=== PATIENT | female | born 1945 | race African-American/Black ===

== ENCOUNTER → 2016-11-02 | Outpatient (CLI) | payer MEDICARE, OTHER ==
--- NOTE | 2016-11-02 09:18 | US ---
EXAMINATION TYPE: US kidneys/renal and bladder DATE OF EXAM: 11/02/2016 COMPARISON: CT lumbar spine March 17, 2016. Bilateral renal ultrasound May 14, 2015. CLINICAL HISTORY: Chronic Kidney Disease Stage 3 N18.3. EXAM MEASUREMENTS: Right Kidney: 9.0 x 4.1 x 4.0 cm Left Kidney: 9.3 x 4.3 x 3.7 cm Post Void Residual Volume: Bladder insufficiently full to evaluate. Right Kidney: Upper pole probable simple cyst = 0.6 x 0.5 x 0.6 cm Left Kidney: wnl Bladder: Bladder insufficiently full to fully evaluate Bilateral Jets seen: yes Normal Post Void Residual: Bladder insufficiently full to evaluate There is no evidence for hydronephrosis at this point in time. No nephrolithiasis is seen. No solid or cystic masses are identified on images saved. The urinary bladder is poorly distended. Bilatera l ureteral jets are seen. exam somewhat limited d/t overlying bowel gas and rib shadowing. IMPRESSION: No hydronephrosis is evident bilaterally.
== END | disposition home or self-care (01) ==
LOC: RADUSWWP 08:22
PROVIDERS: ATTEND Internal Medicine Nephrology
DX: N18.3 Chronic kidney disease, stage 3 (moderate) (principal)
CPT/HCPCS: 76770

== ENCOUNTER → 2017-01-30 | Outpatient (CLI) | payer MEDICARE, OTHER ==
--- NOTE | 2017-02-01 09:37 | MM ---
Reason for exam: screening (asymptomatic). Last mammogram was performed 1 year ago. History: Patient is postmenopausal. Family history of breast cancer in sister at age 50. Benign excisional biopsy of the right breast, January 19, 1998. Physical Findings: A clinical breast exam by your physician is recommended on an annual basis and results should be correlated with mammographic findings. MG 3D Screening Mammo W/Cad Bilateral CC and MLO view(s) were taken. Prior study comparison: January 29, 2016, right breast MG work up mamm w CAD RT. January 26, 2016, bilateral MG screening mammo w CAD. April 30, 2014, bilateral MG screening mammo w CAD. There are scattered fibroglandular densities. No suspicious abnormality. Pacemaker overlies and obscures left axilla. No significant new findings when compared with previous films. ASSESSMENT: Negative, BI-RAD 1 RECOMMENDATION: Routine screening mammogram of both breasts in 1 year.
== END | disposition home or self-care (01) ==
LOC: RADMAMWWP 12:43
PROVIDERS: ATTEND Internal Medicine
DX: Z12.31 Encounter for screening mammogram for malignant neoplasm of breast (principal)
CPT/HCPCS: 77063; G0202

== ENCOUNTER 2019-10-30 22:37 | Inpatient (IN) | payer MEDICARE, OTHER ==
[~2019-10-30 22:37] MED LIST: EPINEPHrine 10 ML SYRINGE (0.1 MG/ML) ONE; SODIUM BICARB 8.4% 50 ML SYR (1 MEQ/ML) ONE
[2019-10-30] MEDS ORDERED: LORazepam 2 MG/ML INJ IV PRN ×2 (22:51)
[2019-10-30 22:53] LABS: Glucose,Whole Blood 252 mg/dL (75-99)
--- NOTE | 2019-10-30 23:00 | ED ---
General Adult HPI - General Source: EMS, RN notes reviewed Mode of arrival: EMS Limitations: altered mental status, physical limitation <José Luis Ponce - Last Filed: 10/30/19 23:56> <Papo Acosta - Last Filed: 10/31/19 05:01> - General Chief complaint: Cardiac Arrest/CPR Stated complaint: CPR Time Seen by Provider: 10/30/19 22:37 - History of Present Illness Initial comments: Patient is unresponsive 74-year-old female presenting to the emergency department with CPR in progress. Patient reportedly was complaining of shortness of breath. Upon arrival by EMS patient became unresponsive and asystole. CPR was done for approximately 15 minutes prior to arrival. Patient did have an intraosseous line on the right leg as well as was intubated. Patient was given 2 epinephrine. Patient is unresponsive and still undergoing CPR and arrival and unable to provide further history. (José Luis Ponce) - Related Data Home Medications Medication Instructions Recorded Confirmed Calcitriol 0.25 mcg PO FR 03/12/14 07/21/15 HYDROcodone/APAP 5-325MG [[place] 1 tab PO BID PRN 03/12/14 07/21/15 5-325] Levothyroxine Sodium [Synthroid] 75 mcg PO DAILY 03/12/14 07/21/15 Lovastatin [Mevacor] 20 mg PO HS 03/12/14 07/21/15 Sodium Bicarbonate Tab 650 mg PO BID 03/12/14 07/21/15 buPROPion XL [Wellbutrin XL] 300 mg PO DAILY 03/12/14 07/21/15 traMADol HCL [Ultram] 50 mg PO Q6HR PRN 03/12/14 07/21/15 Magnesium Oxide [Mag-Ox] 400 mg PO DAILY 09/22/14 07/21/15 Ergocalciferol [Vitamin D2 50,000 unit PO FR 05/13/15 07/21/15 (DRISDOL)] Escitalopram [Lexapro] 10 mg PO DAILY 05/13/15 07/21/15 Furosemide [Lasix] 40 mg PO DAILY 05/13/15 07/21/15 traZODone HCL [Desyrel] 100 mg PO HS 05/13/15 07/21/15 Allopurinol [Zyloprim] 300 mg PO DAILY 02/15/16 02/16/16 Carvedilol [Coreg] 6.25 mg PO BID 07/20/15 07/21/15 Insulin Aspart [NovoLOG Flexpen] See Protocol SQ TID-W/MEALS PRN 07/20/15 07/21/15 Insulin Glargine [Lantus] 8 units SQ HS 07/20/15 07/21/15 hydrALAZINE HCL [Apresoline] 25 mg PO BID 07/20/15 07/21/15 Glucerna Shake 1 can PO TID-W/MEALS 07/21/15 07/21/15 Previous Rx's Medication Instructions Recorded Aspirin 81 mg PO DAILY #90 chew 03/18/14 Allergies Allergy/AdvReac Type Severity Reaction Status Date / Time No Known Allergies Allergy Verified 10/30/19 22:49 Review of Systems ROS Other: All systems not noted in ROS Statement are negative. Limitations: ROS unobtainable due to patients medical condition Respiratory: Reports: dyspnea <José Luis Ponce - Last Filed: 10/30/19 23:56> ROS Other: All systems not noted in ROS Statement are negative. <Papo Acosta - Last Filed: 10/31/19 05:01> ROS Statement: Those systems with pertinent positive or pertinent negative responses have been documented in the HPI. Past Medical History Past Medical History: Diabetes Mellitus, Mitral Valve Prolapse (MVP), Renal Disease, Thyroid Disorder Additional Past Medical History / Comment(s): STATES SOME MEMORY LOSS, HX GOUT History of Any Multi-Drug Resistant Organisms: None Reported Past Surgical History: Cholecystectomy, Heart Catheterization Additional Past Surgical History / Comment(s): DEVEN CATARACT SX, DEVEN EYELIDS SX, Past Anesthesia/Blood Transfusion Reactions: No Reported Reaction Past Psychological History: Depression Smoking Status: Former smoker Past Alcohol Use History: Occasional Past Drug Use History: None Reported - Past Family History Father Family Medical History: Unable to Obtain Additional Family Medical History / Comment(s): PT ESTRANGED FROM FATHER. Mother Family Medical History: Cancer Additional Family Medical History / Comment(s): MOTHER OF CANCER AT AGE 54- UNSURE WHAT TYPE OF CA BUT THINKS IT WAS IN HER ABDOMEN.. <José Luis Ponce - Last Filed: 10/30/19 23:56> General Exam Limitations: no limitations General appearance: obtunded Head exam: Present: normocephalic Eye exam: Present: other (Pupils slightly dilated and sluggish) ENT exam: Present: normal oropharynx Neck exam: Present: normal inspection Respiratory exam: Present: other (No spontaneous breath sounds. Decreased breath sounds with bagging insufflation) Cardiovascular Exam: Present: other (No spontaneous heart sounds or pulse) GI/Abdominal exam: Present: soft. Absent: tenderness Extremities exam: Present: normal inspection Neurological exam: Present: other (Unresponsive. GCS 3) Psychiatric exam: Present: other (Unresponsive) Skin exam: Present: normal color <José Luis Ponce - Last Filed: 10/30/19 23:56> Course <José Luis Ponce - Last Filed: 10/30/19 23:56> Vital Signs 10/30/19 10/30/19 10/30/19 22:52 22:57 23:19 Temperature Pulse Rate 133 H 127 H Respiratory Rate Blood Pressure 126/74 100/71 79/49 O2 Sat by Pulse Oximetry 10/30/19 10/31/19 10/31/19 23:40 00:22 01:17 Temperature Pulse Rate 83 90 69 Respiratory 20 18 16 Rate Blood Pressure 127/61 145/71 135/69 O2 Sat by Pulse 100 100 100 Oximetry 10/31/19 10/31/19 10/31/19 02:16 02:42 04:12 Temperature 91.9 F L 92.8 F L Pulse Rate 59 L 60 54 L Respiratory 18 18 20 Rate Blood Pressure 100/52 107/52 96/45 O2 Sat by Pulse 100 100 100 Oximetry - Reevaluation(s) Reevaluation #1: 10/30/19 22:58 There was question if endotracheal tube was in the appropriate spot. Gastric contents were coming up through the tube with decreased breath sounds. Tube was removed and patient was intubated After approximately 10 minutes of CPR the emergency Department with epinephrine and bicarb patient did have return of circulation. 10/30/19 23:44 Levophed was started secondary to blood pressure dropping. Family is present and updated. (José Luis Ponce) EKG Findings - EKG Comments: EKG Findings:: Normal sinus rhythm 100. GA 152. QRS 170. QT 4:30. QTC 554. Normal axis. Left bundle branch block. Nonspecific ST-T. <José Luis Ponce - Last Filed: 10/30/19 23:56> Procedures - ABG Interpretation Ph: 6.92 PCO2: 43 PO2: 188 Bicarbonate: 9 Interpretation: metabolic acidosis - Central Line Placement Right Femoral Consent Obtained: emergent situation Patient Placed on Monitor/Pulse Ox: Yes MD Prep: mask, gown, gloves Central Line Prep: Chlorhexidine scrub Ultrasound Used for Placement: No Central Line Lumen Inserted: triple Central Line Position: good blood return, all ports aspirated, flushed, capped, sutured in place with 3-0 nylon Dressing Applied: Tegaderm Patient Tolerated Procedure: well, no complications Complications: none - Intubation Laryngoscope: Taylor Size: 3 ET Tube Size: 7 Tube Secured Depth (cm): 22 Tube Secured Location: lips Tube Placement Confirmation: visualized tube passing through cords, equal breath sounds bilaterally, no breath sounds over epigastrium Patient Tolerated Procedure: well Intubation Complications: none <José Luis Ponce - Last Filed: 10/30/19 23:56> Medical Decision Making - Lab Data Result diagrams: 10/30/19 23:14 <José Luis Ponce - Last Filed: 10/30/19 23:56> - Lab Data Result diagrams: 10/30/19 23:14 10/30/19 23:14 <Papo Acosta - Last Filed: 10/31/19 05:01> - Medical Decision Making Receive this patient as a sign out pending some of the studies. I did write admission orders for the patient as well. The case was discussed with the admitting physician as well as the dust mill operator and there treatment recommendations are incorporated. The patient family is updated after discussion with the physicians. (aKt Acosta) - Lab Data Lab Results 10/30/19 10/30/19 10/30/19 Range/Units 22:42 23:14 23:14 WBC 12.9 H (3.8-10.6) k/uL RBC 2.98 L (3.80-5.40) m/uL Hgb 8.9 L (11.4-16.0) gm/dL Hct 30.0 L (34.0-46.0) % MCV 100.8 H (80.0-100.0) fL MCH 29.7 (25.0-35.0) pg MCHC 29.5 L (31.0-37.0) g/dL RDW 13.2 (11.5-15.5) % Plt Count 165 (150-450) k/uL Neutrophils % (Manual) 15 % Band Neutrophils % 2 % Lymphocytes % (Manual) 82 % Monocytes % (Manual) 1 % Neutrophils # (Manual) 2.10 (1.3-7.7) k/uL Lymphocytes # (Manual) 10.58 H (1.0-4.8) k/uL Monocytes # (Manual) 0.13 (0-1.0) k/uL Nucleated RBCs 0 (0-0) /100 WBC Differential Comment Manual Slide Review Performed Hypochromasia Marked Poikilocytosis (manual Present Anisocytosis (manual) Present Ovalocytes Present PT 11.7 (9.0-12.0) sec INR 1.2 H (<1.2) APTT 22.0 (22.0-30.0) sec Sample Site ABG pH (7.35-7.45) ABG pCO2 (35-45) mmHg ABG pO2 (83-108) mmHg ABG HCO3 (21-25) mmol/L ABG Total CO2 (19-24) mmol/L ABG O2 Saturation (94-97) % ABG Base Excess mmol/L Ivan Test FiO2 % Sodium (137-145) mmol/L Potassium (3.5-5.1) mmol/L Chloride (98-107) mmol/L Carbon Dioxide (22-30) mmol/L Anion Gap mmol/L BUN (7-17) mg/dL Creatinine (0.52-1.04) mg/dL Est GFR (CKD-EPI)AfAm (>60 ml/min/1.73 sqM) Est GFR (CKD-EPI)NonAf (>60 ml/min/1.73 sqM) Glucose (74-99) mg/dL POC Glucose (mg/dL) 252 H (75-99) mg/dL POC Glu Stockholder ID [place] A Lactic Ac Sepsis Rflx Plasma Lactic Acid Ham (0.7-2.0) mmol/L Calcium (8.4-10.2) mg/dL Magnesium (1.6-2.3) mg/dL Total Bilirubin (0.2-1.3) mg/dL AST (14-36) U/L ALT (4-34) U/L Alkaline Phosphatase (38-126) U/L Lactate Dehydrogenase (313-618) U/L Troponin I (0.000-0.034) ng/mL C-Reactive Protein (<10.0) mg/L NT-Pro-B Natriuret Pep pg/mL Total Protein (6.3-8.2) g/dL Albumin (3.5-5.0) g/dL 10/30/19 10/30/19 10/30/19 Range/Units 23:14 23:14 23:14 WBC (3.8-10.6) k/uL RBC (3.80-5.40) m/uL Hgb (11.4-16.0) gm/dL Hct (34.0-46.0) % MCV (80.0-100.0) fL MCH (25.0-35.0) pg MCHC (31.0-37.0) g/dL RDW (11.5-15.5) % Plt Count (150-450) k/uL Neutrophils % (Manual) % Band Neutrophils % % Lymphocytes % (Manual) % Monocytes % (Manual) % Neutrophils # (Manual) (1.3-7.7) k/uL Lymphocytes # (Manual) (1.0-4.8) k/uL Monocytes # (Manual) (0-1.0) k/uL Nucleated RBCs (0-0) /100 WBC Differential Comment Manual Slide Review Hypochromasia Poikilocytosis (manual Anisocytosis (manual) Ovalocytes PT (9.0-12.0) sec INR (<1.2) APTT (22.0-30.0) sec Sample Site ABG pH (7.35-7.45) ABG pCO2 (35-45) mmHg ABG pO2 (83-108) mmHg ABG HCO3 (21-25) mmol/L ABG Total CO2 (19-24) mmol/L ABG O2 Saturation (94-97) % ABG Base Excess mmol/L Ivan Test FiO2 % Sodium 138 (137-145) mmol/L Potassium 4.9 (3.5-5.1) mmol/L Chloride 106 (98-107) mmol/L Carbon Dioxide 9 L* (22-30) mmol/L Anion Gap 23 mmol/L BUN 26 H (7-17) mg/dL Creatinine 2.16 H (0.52-1.04) mg/dL Est GFR (CKD-EPI)AfAm 25 (>60 ml/min/1.73 sqM) Est GFR (CKD-EPI)NonAf 22 (>60 ml/min/1.73 sqM) Glucose 327 H (74-99) mg/dL POC Glucose (mg/dL) (75-99) mg/dL POC Glu Stockholder ID Lactic Ac Sepsis Rflx Plasma Lactic Acid Ham 14.7 H* (0.7-2.0) mmol/L Calcium 8.2 L (8.4-10.2) mg/dL Magnesium 1.9 (1.6-2.3) mg/dL Total Bilirubin 0.3 (0.2-1.3) mg/dL AST 86 H (14-36) U/L ALT 49 H (4-34) U/L Alkaline Phosphatase 108 (38-126) U/L Lactate Dehydrogenase 676 H (313-618) U/L Troponin I <0.012 (0.000-0.034) ng/mL C-Reactive Protein 9.3 (<10.0) mg/L NT-Pro-B Natriuret Pep pg/mL Total Protein 5.5 L (6.3-8.2) g/dL Albumin 2.8 L (3.5-5.0) g/dL 10/30/19 10/30/19 10/31/19 Range/Units 23:14 23:48 00:01 WBC (3.8-10.6) k/uL RBC (3.80-5.40) m/uL Hgb (11.4-16.0) gm/dL Hct (34.0-46.0) % MCV (80.0-100.0) fL MCH (25.0-35.0) pg MCHC (31.0-37.0) g/dL RDW (11.5-15.5) % Plt Count (150-450) k/uL Neutrophils % (Manual) % Band Neutrophils % % Lymphocytes % (Manual) % Monocytes % (Manual) % Neutrophils # (Manual) (1.3-7.7) k/uL Lymphocytes # (Manual) (1.0-4.8) k/uL Monocytes # (Manual) (0-1.0) k/uL Nucleated RBCs (0-0) /100 WBC Differential Comment Manual Slide Review Hypochromasia Poikilocytosis (manual Anisocytosis (manual) Ovalocytes PT (9.0-12.0) sec INR (<1.2) APTT (22.0-30.0) sec Sample Site Right Radial ABG pH 6.93 L* (7.35-7.45) ABG pCO2 43 (35-45) mmHg ABG pO2 188 H (83-108) mmHg ABG HCO3 9 L* (21-25) mmol/L ABG Total CO2 10 L (19-24) mmol/L ABG O2 Saturation 97.3 H (94-97) % ABG Base Excess -23.4 mmol/L Ivan Test Yes FiO2 100 % Sodium (137-145) mmol/L Potassium (3.5-5.1) mmol/L Chloride (98-107) mmol/L Carbon Dioxide (22-30) mmol/L Anion Gap mmol/L BUN (7-17) mg/dL Creatinine (0.52-1.04) mg/dL Est GFR (CKD-EPI)AfAm (>60 ml/min/1.73 sqM) Est GFR (CKD-EPI)NonAf (>60 ml/min/1.73 sqM) Glucose (74-99) mg/dL POC Glucose (mg/dL) (75-99) mg/dL POC Glu Stockholder ID Lactic Ac Sepsis Rflx Y Plasma Lactic Acid Ham (0.7-2.0) mmol/L Calcium (8.4-10.2) mg/dL Magnesium (1.6-2.3) mg/dL Total Bilirubin (0.2-1.3) mg/dL AST (14-36) U/L ALT (4-34) U/L Alkaline Phosphatase (38-126) U/L Lactate Dehydrogenase (313-618) U/L Troponin I (0.000-0.034) ng/mL C-Reactive Protein (<10.0) mg/L NT-Pro-B Natriuret Pep 03037 pg/mL Total Protein (6.3-8.2) g/dL Albumin (3.5-5.0) g/dL Critical Care Time Critical Care Time: Yes Total Critical Care Time: 35 <José Luis Ponce - Last Filed: 10/30/19 23:56> Disposition <José Luis Ponce - Last Filed: 10/30/19 23:56> <Papo Acosta - Last Filed: 10/31/19 05:01> Clinical Impression: Acute respiratory failure, Congestive heart failure, Cardiac arrest, Chronic renal disease, Anemia, Lactic acidosis Disposition: ADMITTED IP TO THIS HOSP Condition: Critical
[2019-10-30] MEDS: NOREPINEPHRINE 32 MG in SODIUM CHLORIDE 0.9% 218 ML IV SCH (23:19)
[2019-10-30 23:33] LABS: HGB 8.9 gm/dL (11.4-16.0); Hypochromasia Marked; MCH 29.7 pg (25.0-35.0); MCHC 29.5 g/dL (31.0-37.0); MCV 100.8 fL (80.0-100.0); Mean Platelet Volume 8.4; Platelet Count 165 k/uL (150-450); RBC 2.98 m/uL (3.80-5.40); RDW 13.2 % (11.5-15.5); WBC 12.9 k/uL (3.8-10.6)
[2019-10-30] MEDS: PROPOFOL 1,000 MG in EMPTY BAG 1 BAG IV SCH (23:44)
[2019-10-30 23:45] LABS: Albumin 2.8 g/dL (3.5-5.0); C Reactive Protein 9.3 mg/L (<10.0); Calcium 8.2 mg/dL (8.4-10.2); Magnesium 1.9 mg/dL (1.6-2.3); Potassium 4.9 mmol/L (3.5-5.1); Total Bilirubin 0.3 mg/dL (0.2-1.3); Total Protein 5.5 g/dL (6.3-8.2)
--- NOTE | 2019-10-30 23:49 | XR ---
EXAMINATION TYPE: XR chest 1V portable DATE OF EXAM: 10/30/2019 COMPARISON: 07/22/2015 HISTORY: Short of breath TECHNIQUE: FINDINGS: Endotracheal tube is 3.5 cm from the gina. There is moderate alveolar edema. Heart appear s slightly enlarged. There is left axillary pacemaker. There are chest leads. There is nasogastric tu be with the tip in the distal esophagus. There is no sign of pneumothorax. Trachea is midline. IMPRESSION: Moderately severe pulmonary edema that is a change compared to old exam.
[2019-10-30 23:51] LABS: ABG Base Excess -23.4 mmol/L; ABG Oxygen Saturation 97.3 % (94-97); ABG PCO2 43 mmHg (35-45); ABG PO2 188 mmHg (83-108); ABG TCO2 10 mmol/L (19-24); Allen Test Performed? Yes
[2019-10-30 23:51] LABS: INR 1.2 (<1.2); Prothrombin Time 11.7 sec (9.0-12.0)
[2019-10-30] MEDS ORDERED: SODIUM BICARB 8.4% 50 ML SYR (1 MEQ/ML) IV STA (23:55)
[2019-10-30 23:56] LABS: ABG PH 6.93 (7.35-7.45)
[2019-10-30 23:57] LABS: ABG HCO3 9 mmol/L (21-25)
--- NOTE | 2019-10-31 01:35 | CT ---
EXAMINATION TYPE: CT brain wo con DATE OF EXAM: 10/31/2019 COMPARISON: 03/17/2016 HISTORY: AMS CT DLP: 1090.4 mGycm Automated exposure control for dose reduction was used. There is mild cerebral cortical atrophy. There is no mass effect nor midline shift. There is no sign of intracranial hemorrhage. The calvarium is intact. There is no evidence of cerebral edema. IMPRESSION: Mild atrophy. No acute intracranial abnormality.
[2019-10-31 02:28] LABS: Band Neutrophils % 2 %; Lymphocytes # (M) 10.58 k/uL (1.0-4.8); Monocytes # (M) 0.13 k/uL (0-1.0); Neutrophils % (M) 15 %; Nucleated Red Blood Cells 0 /100 WBC (0-0); Total Cells Counted 100
[2019-10-31 02:32] LABS: Anisocytosis (M) Present; Poikilocytosis (M) Present
[2019-10-31 02:33] LABS: Ovalocytes Present
[2019-10-31] MEDS ORDERED: NALOXONE 0.4 MG/ML 1 ML VIAL IV PRN (02:58)
[2019-10-31] MEDS: SODIUM CHLORIDE 0.9% 1,000 ML IV SCH ×2 (03:25→09:30)
[2019-10-31] MEDS: CHLORHEXIDINE GLUCONATE 15 ML CUP MUCOUS MEM SCH ×2 (03:40→20:57)
[2019-10-31 04:04] LABS: ABG Base Excess -10.3 mmol/L; ABG HCO3 15 mmol/L (21-25); ABG Oxygen Saturation 99.3 % (94-97); ABG PCO2 27 mmHg (35-45); ABG PH 7.36 (7.35-7.45); ABG PO2 242 mmHg (83-108); ABG TCO2 16 mmol/L (19-24); Allen Test Performed? Yes
[2019-10-31] MEDS: PROPOFOL 1,000 MG in EMPTY BAG 1 BAG IV SCH (06:06)
[2019-10-31 06:12] LABS: Glucose,Whole Blood 293 mg/dL (75-99)
[2019-10-31 07:01] LABS: Glucose,Whole Blood 268 mg/dL (75-99)
--- NOTE | 2019-10-31 07:34 | XR ---
EXAMINATION TYPE: XR chest 1V portable DATE OF EXAM: 10/31/2019 COMPARISON: 10/30/2019 HISTORY: Endotracheal tube placement. Status post cardiac arrest. TECHNIQUE: Single frontal view of the chest is obtained. FINDINGS: Satisfactory placement of the endotracheal tube and enteric tube. Attention on follow-up e xams replacement of the enteric tube is the fenestrated portion is just in the gastroesophageal junct ion. External chest leads overlying the right hemithorax partially obscuring visualization. Single le ad left-sided cardiac device is seen. Cardiomediastinal silhouette is similar in size to the prior. P erihilar interstitial prominence remains. IMPRESSION: Stable moderate central pulmonary vascular congestion and perihilar opacities, possibly atelectasis.
[2019-10-31 08:20] LABS: Basophils % (A) 0 %; Eosinophils # (A) 0.1 k/uL (0-0.7); Eosinophils % (A) 1 %; HCT 29.2 % (34.0-46.0); HGB 9.3 gm/dL (11.4-16.0); Lymphocytes # (A) 1.1 k/uL (1.0-4.8); Lymphocytes % (A) 10 %; MCH 28.4 pg (25.0-35.0); Mean Platelet Volume 8.3; Monocytes # (A) 0.3 k/uL (0-1.0); Monocytes % (A) 3 %; Neutrophils # (A) 9.1 k/uL (1.3-7.7); Neutrophils % (A) 86 %; Platelet Count 187 k/uL (150-450); RBC 3.28 m/uL (3.80-5.40); RDW 13.3 % (11.5-15.5); WBC 10.6 k/uL (3.8-10.6)
[2019-10-31 08:24] LABS: MCV 88.9 fL (80.0-100.0)
[2019-10-31 08:31] LABS: Albumin 2.6 g/dL (3.5-5.0); Calcium 7.4 mg/dL (8.4-10.2); Magnesium 1.5 mg/dL (1.6-2.3); Phosphorus 5.4 mg/dL (2.5-4.5); Potassium 4.2 mmol/L (3.5-5.1); Total Bilirubin 0.2 mg/dL (0.2-1.3); Total Protein 5.4 g/dL (6.3-8.2)
[2019-10-31] MEDS ORDERED: Magnesium Replacement Protocol 1 EACH MISC MISCELLANE PRN (08:41)
[2019-10-31] MEDS: MAGNESIUM SULFATE-D5W PMX 1 GM in DEXTROSE/WATER 1 100ML.BAG IVPB SCH ×2 (09:29→10:55)
[2019-10-31] MEDS: IPRATROPIUM-ALBUTEROL 3 ML NEB INHALATION SCH ×5 (09:36→23:38)
--- NOTE | 2019-10-31 10:54 | P.CRDCN ---
History of Present Illness Consult date: 10/31/19 History of present illness: I was asked to see this patient as a consult for further cardiac evaluation for cardiomyopathy as well as heart failure. When I arrived the room, the patient was intubated and she is on mechanical ventilation. The patient is a 74-year-old -[place] female patient with an extensive past medical history consistent off severe nonischemic cardiomyopathy and status post biVICD, hypertension, dyslipidemia, and chronic kidney disease. Apparently the patient was brought by ambulance to the emergency room unresponsive with ongoing CPR. No history is available at this point. The history was taken from the electronic medical records. When the patient was arrived she was under CPR with V. fib as well as asystole. Knowing formation available about the clinical scenario before the patient presented to the emergency room. Currently she is in acute hypoxic respiratory failure and she is on mechanical ventilation. The chest x-ray showed findings consistent with volume overload. At the same time the patient is hemodynamically is unstable and requiring high-dose of norepinephrine. Lactic acid also is elevated and there is possibly undergoing infection with the patient. The patient underwent a heart catheterization in 2014 and that showed normal coronaries. An echocardiogram was also performed in 2014 and that revealed cardiomyopathy with EF between 20-25% and because she was on maximize medical treatment with no improvement in the ejection fraction subsequently she underwent BiV ICD placement. An echocardiogram at this point is in process to be done. We are going to interrogate her AICD to see if she developed any cardiac arrhythmia in the setting of severe cardiomyopathy. Beside that continue holding all her blood pressure medications and also I would hold any diuretics at this point in view of the severe hypotension. I did review also the patient's EKG which revealed sinus rhythm with left bundle-branc h block. She did have left bundle branch block from 2015. Past Medical History Past Medical History: Diabetes Mellitus, Mitral Valve Prolapse (MVP), Renal Dis ease, Thyroid Disorder Additional Past Medical History / Comment(s): STATES SOME MEMORY LOSS, HX GOUT History of Any Multi-Drug Resistant Organisms: None Reported Past Surgical History: Cholecystectomy, Heart Catheterization Additional Past Surgical History / Comment(s): DEVEN CATARACT SX, DEVEN EYELIDS SX, Past Anesthesia/Blood Transfusion Reactions: No Reported Reaction Past Psychological History: Depression Smoking Status: Former smoker Past Alcohol Use History: Occasional Past Drug Use History: None Reported - Past Family History Father Family Medical History: Unable to Obtain Additional Family Medical History / Comment(s): PT ESTRANGED FROM FATHER. Mother Family Medical History: Cancer Additional Family Medical History / Comment(s): MOTHER OF CANCER AT AGE 54- UNSURE WHAT TYPE OF CA BUT THINKS IT WAS IN HER ABDOMEN.. Medications and Allergies Home Medications Medication Instructions Recorded Confirmed Type Calcitriol 0.25 mcg PO FR 03/12/14 07/21/15 History HYDROcodone/APAP 5-325MG [[place] 1 tab PO BID PRN 03/12/14 07/21/15 History 5-325] Levothyroxine Sodium [Synthroid] 75 mcg PO DAILY 03/12/14 07/21/15 History Lovastatin [Mevacor] 20 mg PO HS 03/12/14 07/21/15 History Sodium Bicarbonate Tab 650 mg PO BID 03/12/14 07/21/15 History buPROPion XL [Wellbutrin XL] 300 mg PO DAILY 03/12/14 07/21/15 History traMADol HCL [Ultram] 50 mg PO Q6HR PRN 03/12/14 07/21/15 History Aspirin 81 mg PO DAILY #90 chew 03/18/14 07/21/15 Rx Magnesium Oxide [Mag-Ox] 400 mg PO DAILY 09/22/14 07/21/15 History Ergocalciferol [Vitamin D2 50,000 unit PO FR 05/13/15 07/21/15 History (DRISDOL)] Escitalopram [Lexapro] 10 mg PO DAILY 05/13/15 07/21/15 History Furosemide [Lasix] 40 mg PO DAILY 05/13/15 07/21/15 History traZODone HCL [Desyrel] 100 mg PO HS 05/13/15 07/21/15 History Allopurinol [Zyloprim] 300 mg PO DAILY 07/20/15 07/21/15 History Carvedilol [Coreg] 6.25 mg PO BID 07/20/15 07/21/15 History Insulin Aspart [NovoLOG Flexpen] See Protocol SQ TID-W/MEALS PRN 07/20/15 07/21/15 History Insulin Glargine [Lantus] 8 units SQ HS 07/20/15 07/21/15 History hydrALAZINE HCL [Apresoline] 25 mg PO BID 07/20/15 07/21/15 History Glucerna Shake 1 can PO TID-W/MEALS 07/21/15 07/21/15 History Allergies Allergy/AdvReac Type Severity Reaction Status Date / Time No Known Allergies Allergy Verified 10/30/19 22:49 Physical Exam Vitals: Vital Signs Temp Pulse Resp BP Pulse Ox 10/31/19 10:38 71 10/31/19 07:10 61 20 119/56 100 10/31/19 07:00 95.4 F L 62 20 100 10/31/19 06:18 94.3 F L 59 L 20 125/58 100 10/31/19 05:43 93.4 F L 56 L 20 115/53 100 10/31/19 04:12 92.8 F L 54 L 20 96/45 100 10/31/19 02:42 91.9 F L 60 18 107/52 10/31/19 02:16 59 L 18 100/52 100 10/31/19 01:17 69 16 135/69 100 10/31/19 00:22 90 18 145/71 100 10/30/19 23:40 83 20 127/61 100 10/30/19 23:19 79/49 10/30/19 22:57 127 H 100/71 10/30/19 22:52 133 H 126/74 Intake and Output 10/30/19 10/31/19 10/31/19 22:59 06:59 14:59 Intake Total 76.701 128.487 Output Total 0 5 Balance 76.701 123.487 Intake: IV 80 Sodium Chloride 0.9% 1, 80 000 ml @ 80 mls/hr IV . [id number] GHISLAINE Rx#:[id number] Intake, IV Titration 76.701 48.487 Amount Norepinephrine 32 mg In 2.021 Sodium Chloride 0.9% 218 ml @ 0.05 MCG/KG/MIN 1. 114 mls/hr IV .Q24H GHISLAINE Rx#:[id number] Propofol 1,000 mg In 74.680 48.487 Empty Bag 1 bag @ Titrate IV .Q0M GHISLAINE Rx#: [id number] Output: Urine 0 5 Uretheral (Mora) 0 Other: Weight 47.536 kg 47.536 kg - Constitutional General appearance: no acute distress - Respiratory Respiratory: bilateral: diminished - Cardiovascular Rhythm: regular Heart sounds: normal: S1, S2 Results 10/31/19 07:39 10/31/19 07:39 Cardiac Enzymes 10/30/19 10/30/19 10/31/19 Range/Units 23:14 23:14 07:39 AST 86 H 152 H (14-36) U/L Lactate Dehydrogenase 676 H (313-618) U/L Troponin I <0.012 (0.000-0.034) ng/mL Coagulation 10/30/19 Range/Units 23:14 PT 11.7 (9.0-12.0) sec APTT 22.0 (22.0-30.0) sec CBC 10/30/19 10/31/19 Range/Units 23:14 07:39 WBC 12.9 H 10.6 (3.8-10.6) k/uL RBC 2.98 L 3.28 L (3.80-5.40) m/uL Hgb 8.9 L 9.3 L (11.4-16.0) gm/dL Hct 30.0 L 29.2 L (34.0-46.0) % Plt Count 165 187 (150-450) k/uL Comprehensive Metabolic Panel 10/30/19 10/31/19 Range/Units 23:14 07:39 Sodium 138 138 (137-145) mmol/L Potassium 4.9 4.2 (3.5-5.1) mmol/L Chloride 106 111 H (98-107) mmol/L Carbon Dioxide 9 L* 15 L (22-30) mmol/L BUN 26 H 36 H (7-17) mg/dL Creatinine 2.16 H 2.22 H (0.52-1.04) mg/dL Glucose 327 H 269 H (74-99) mg/dL Calcium 8.2 L 7.4 L (8.4-10.2) mg/dL AST 86 H 152 H (14-36) U/L ALT 49 H 86 H (4-34) U/L Alkaline Phosphatase 108 131 H (38-126) U/L Total Protein 5.5 L 5.4 L (6.3-8.2) g/dL Albumin 2.8 L 2.6 L (3.5-5.0) g/dL Current Medications Generic Name Dose Route Start Last Admin Trade Name Freq PRN Reason Stop Dose Admin Albuterol/Ipratropium 3 ml 10/31/19 08:00 10/31/19 10:27 Duoneb 0.5 Mg-3 Mg/3 Ml Soln INHALATION 3 ml RT-Q4H GHISLAINE Administration Chlorhexidine Gluconate 15 ml 10/31/19 09:00 10/31/19 03:40 Peridex MUCOUS MEM 15 ml BID GHISLAINE Administration Propofol 1,000 mg/ IV Solution 100 mls @ 0 mls/hr 10/30/19 23:00 10/31/19 09:30 IV 40 mcg/kg/min .Q0M GHISLAINE 11.409 mls/hr Titration Protocol Titrate Norepinephrine Bitartrate 32 250 mls @ 1.114 mls/hr 10/30/19 23:15 10/31/19 02:15 mg/ Sodium Chloride IV 0.05 mcg/kg/min .Q24H GHISLAINE 1.114 mls/hr Titration Protocol 0.05 MCG/KG/MIN Sodium Chloride 1,000 mls @ 80 mls/hr 10/31/19 03:00 10/31/19 09:30 Saline 0.9% IV 80 mls/hr .[id number] GHISLAINE Administration Miscellaneous Information 1 each 10/31/19 08:41 Magnesium Per Protocol MISCELLANE DAILY PRN Per Protocol Protocol Naloxone HCl 0.2 mg 10/31/19 02:58 Narcan IV Q2M PRN Opioid Reversal Intake and Output 10/30/19 10/31/19 10/31/19 22:59 06:59 14:59 Intake Total 76.701 128.487 Output Total 0 5 Balance 76.701 123.487 Intake: IV 80 Sodium Chloride 0.9% 1, 80 000 ml @ 80 mls/hr IV . [id number] GHISLAINE Rx#:[id number] Intake, IV Titration 76.701 48.487 Amount Norepinephrine 32 mg In 2.021 Sodium Chloride 0.9% 218 ml @ 0.05 MCG/KG/MIN 1. 114 mls/hr IV .Q24H GHISLAINE Rx#:[id number] Propofol 1,000 mg In 74.680 48.487 Empty Bag 1 bag @ Titrate IV .Q0M GHISLAINE Rx#: [id number] Output: Urine 0 5 Uretheral (Mora) 0 Other: Weight 47.536 kg 47.536 kg Patient Weight 11/01/19 06:59 Weight 47.536 kg 10/31/19 07:39 10/31/19 07:39 Assessment and Plan Assessment: Assessment #1 cardiopulmonary arrest of unknown etiology at this point. #2 rule out cardiac arrhythmia in the setting of severe cardiomyopathy #3 known severe cardiomyopathy and status post ICD #4 hypotension requiring vasopressors #5 possible underlying infection #6 chronic kidney disease #7 diabetes #8 multiple comorbid conditions Plan #1 we will interrogate the AICD #2 continue holding her blood pressure medication #3 ventilator management. Intensive care team #4 obtain an echocardiogram #5 follow-up with the patient Thank you for allowing us participate in her care
--- NOTE | 2019-10-31 11:55 | CONS ---
CONSULTATION PULMONARY/CRITICAL CARE CONSULTATION: DATE OF SERVICE: 10/31/2019 This is a 74-year-old black female who had [id number] cardiopulmonary arrest. She had about 15 minutes of cardiopulmonary resuscitation before coming to the hospital and about another 10 minutes of resuscitation while in the hospital. Interestingly, when I talked to the doctor last night, I believe it was Dr. Hernandez, he mentioned that when the patient arrived in the ER, Dr. Ponce thought the patient had an esophageal intubation. He ended up re-intubating her. Her initial pH was quite low 6.93 but her PO2 was 188. I am not sure if it was an esophageal intubation. Anyway, the patient presents with cardiopulmonary arrest, undergoing cardiopulmonary resuscitation with eventual return of spontaneous circulation. The patient has a history of multiple medical problems including depression, diabetes mellitus, hyperlipidemia, hypertension, mitral valve prolapse, chronic kidney disease, hypothyroidism, dementia, and gout. The patient will need an art line placed. She has a right femoral triple-lumen catheter already in place. We are going to see if we can wake her out. We will give her sedation holiday. Currently, she remains on the ventilator, using the volume assist-control mode rate of 20, tidal volume 350, FiO2 of 60%, PEEP of 5. Blood gases show a pO2 of 242, pCO2 of 27, pH of 7.36. This is on 100% O2. The FiO2 was turned down to 60%. The blood gases are consistent with a mixed acid-base disturbance including a combined respiratory alkalosis and metabolic acidosis. The patient is getting saline at 80 mL an hour, norepinephrine at 0.05 mcg/kg per minute and Diprivan at 50 mcg/kg per minute. She will get a sedation holiday as mentioned above. CURRENT MEDICATIONS: Reviewed. She is on calcitriol, [place], levothyroxine, Mevacor, sodium bicarbonate tablets, Wellbutrin, tramadol, magnesium, Drisdol, Lexapro, Lasix, Desyrel, Zyloprim, Coreg, insulin, Apresoline, and Glucerna shakes. She was also apparently on aspirin prior. ALLERGIES: Denied. MEDICAL HISTORY: According to the medical record includes diabetes mellitus, mitral valve prolapse, chronic kidney disease, hypothyroidism, dementia, gout, hypertension, hyperlipidemia, among other things. SURGICAL HISTORY: Includes cholecystectomy, heart catheterization, bilateral cataract surgery and bilateral eyelid surgery. SOCIAL HISTORY: Positive for previous tobacco use. She drinks occasionally. No illicit drug use. FAMILY HISTORY: Apparently significant for mother who of cancer at age 54. Medical history of father not known. REVIEW OF SYSTEMS: Cannot be obtained. The patient is currently intubated and mechanically ventilated. Current vital signs are reviewed. Temperature is 95.4, heart rate is 61, respiratory rate 20, blood pressure 119/56 mean 77, saturations are 100% on 60% and 5 of PEEP. Appears in no acute distress. Currently sedated. HEENT: Examination is grossly unremarkable. There is an orally placed endotracheal tube and NG tube. NECK: Supple. Full range of motion. No adenopathy. Neck veins are flat. CARDIOVASCULAR: Examination reveals regular rhythm and rate. Heart rate is right around 60 beats per minute. S1, S2 normal. No murmur. Heart sounds are distant. LUNGS: A few scattered rhonchi. Mostly clear breath sounds, though. No wheezes or crackles. ABDOMEN: Soft, bowel sounds are noted. EXTREMITIES: Intact. No edema. SKIN: Without rash. NEUROLOGIC: Examination cannot be adequately assessed as the patient is currently sedated on propofol. LABS: Reviewed. White count 10.6, hemoglobin 9.3, hematocrit 29.2, platelet count 187,000. Sodium 138, potassium 4.2, chloride is 111, CO2 is 15, anion gap is 12. BUN and creatinine were 36 and 2.22. These blood gases are consistent with a non-anion gap metabolic acidosis. It is probably related to renal insufficiency or chronic kidney disease. The rest of the labs are reviewed. Lactic acid 3.9, it has not been repeated. Albumin 2.6. AST and ALT were 152 and 86, respectively. Microbiology is currently pending or negative. Chest x-ray shows some fluid overload/pulmonary congestion. CT of the brain showed nothing acute. Medications are reviewed. The patient is on chlorhexidine, updrafts q.4, Ativan, magnesium replacement, Narcan, norepinephrine, propofol and saline IV. Ativan is discontinued. ASSESSMENT: 1. Ijh-jx-ynvayeqr cardiopulmonary arrest with prolonged resuscitation phase, lasting about 25 minutes total, with possible esophageal intubation, requiring re- intubation, rule out anoxic brain injury. 2. Cardiopulmonary arrest of unclear etiology. 3. History of depression. 4. Diabetes mellitus. 5. Hyperlipidemia. 6. Hypertension. 7. History of mitral valve prolapse. 8. History of chronic kidney disease. 9. Hypothyroidism. 10.Dementia. 11.Gout. 12.Non-anion gap metabolic acidosis. PLAN: The patient will have an art line placed. Patient is currently on norepinephrine. Will get the patient off of Diprivan. The patient may benefit from a daily interruption of sedation. Will assess her mental status. We may end up needing a neurology consult and EEG. Additional recommendations and suggestions are forthcoming. Prognosis is guarded. Hopefully, the prolonged resuscitation did not the lead to anoxic brain injury. Will continue to follow. Prognosis is guarded. MMODL / IJN: [id number] /
[2019-10-31 12:06] LABS: Glucose,Whole Blood 286 mg/dL (75-99)
--- NOTE | 2019-10-31 12:22 | PCN ---
PROCEDURE NOTE PROCEDURE: Left radial art line. PREOPERATIVE DIAGNOSIS: Frequent blood draws and blood gas monitoring. POSTOPERATIVE DIAGNOSIS: Frequent blood draws and blood gas monitoring. OPERATORS: Dr. Mccauley and Alex Leslie. A time-out was completed verifying correct patient, procedure, site, positioning, and implant(s) or special equipment if applicable. Ivan's test was performed to ensure adequate perfusion. The patient's left wrist was prepped and draped in sterile fashion. 1% Lidocaine was used to anesthetize the area. An 18G [place] arterial line was introduced into the radial/femoral artery. The catheter was threaded over the guide wire and the needle was removed with appropriate pulsatile blood return. Blood loss was minimal. The catheter was then sutured in place to the skin and a sterile dressing applied. Perfusion to the extremity distal to the point of catheter insertion was checked and found to be adequate. The patient tolerated the procedure well. There was no immediate complication. There was good blood return and waveform. The catheter was sutured in place. A sterile dressing was applied by the nurse. There was no immediate complication. MMODL / IJN: [id number] /
[2019-10-31] MEDS ORDERED: SODIUM CHLORIDE 0.9% 1,000 ML IV ONE ×2 (12:35→14:43)
[2019-10-31] MEDS: INSULIN ASPART (NovoLOG) 100 UNIT/ML VIAL SQ SCH ×2 (13:01→18:30)
[2019-10-31] MEDS: PANTOPRAZOLE 40 MG/10 ML VIAL IVP SCH (13:02)
[2019-10-31] MEDS ORDERED: FUROSEMIDE 10 MG/ML 10 ML VIAL IV STA (13:54)
--- NOTE | 2019-10-31 14:26 | P.NPCON ---
History of Present Illness - Reason for Consult acute renal failure, chronic renal failure - History of Present Illness Reason for presentation: Acute kidney injury on chronic kidney disease History of present illness: Patient is a 74-year-old female seen in renal consultation for acute kidney injury on chronic kidney disease. Patient was found unresponsive at home and CPE R was initiated. The patient came to the ER CPR was in progress. Patient was noted to be in asystole. About 15 minutes of CPR was performed prior to arrival. She did get 2 doses of epinephrine. She underwent another 10 minutes of CPR in the ER for a total of 25 minutes. She is currently intubated and sedated. She is off all vasopressors. She is maintained on normal saline at 80 mL an hour. She is currently receiving 1 L bolus of normal saline. Patient is oliguric. Last hour urine output was only 3 mL. Prior to that it was 20 mL. She is also noted to be extremely acidotic. PH was 6.93 on admission and this morning was 7.36. Patient has history of chronic kidney disease stage III with baseline creatinine near 2 secondary to nephrosclerosis. Vital signs are stable. General: The patient appeared well nourished and normally developed. HEENT: Head exam is unremarkable. Neck is without jugular venous distension. Intubated. LUNGS: Breath sounds decreased. HEART: Rate and Rhythm are regular. First and second heart sounds normal. No murmurs, rubs or gallops. ABDOMEN: Abdominal exam reveals normal bowel sounds. Non-tender and non- distended. EXTREMITITES: Trace edema in the feet. Past Medical History Past Medical History: Diabetes Mellitus, Mitral Valve Prolapse (MVP), Renal Disease, Thyroid Disorder Additional Past Medical History / Comment(s): STATES SOME MEMORY LOSS (early onset alzeimers), HX GOUT History of Any Multi-Drug Resistant Organisms: None Reported Past Surgical History: Cholecystectomy, Heart Catheterization, Pacemaker Additional Past Surgical History / Comment(s): DEVEN CATARACT SX, DEVEN EYELIDS SX, AICD (2012) was changhed in 2014 due to being recalled Past Anesthesia/Blood Transfusion Reactions: No Reported Reaction Type of Cardiac Device: AICD Device Placement Date:: 2012 Past Psychological History: Depression Additional Psychological History / Comment(s): PT IS ON MEDS FOR DEPRESSION AND HAS USED A PSYCHIATRIST IN THE PAST FOR THIS. DEPRESSION HAS BEEN WELL FOR A LONG TIME NOW. Smoking Status: Current every day smoker Past Alcohol Use History: Occasional Additional Past Alcohol Use History / Comment(s): SMOKEs 1/2PPD, STARTED SMOKING A TEEN Past Drug Use History: None Reported - Past Family History Father Family Medical History: Unable to Obtain Additional Family Medical History / Comment(s): PT ESTRANGED FROM FATHER. Mother Family Medical History: Cancer Additional Family Medical History / Comment(s): MOTHER OF CANCER AT AGE 54- UNSURE WHAT TYPE OF CA BUT THINKS IT WAS IN HER ABDOMEN.. Sister(s) Family Medical History: Cancer Additional Family Medical History / Comment(s): Breast Medications and Allergies Home Medications Medication Instructions Recorded Confirmed Type Calcitriol 0.25 mcg PO FR 03/12/14 10/31/19 History HYDROcodone/APAP 5-325MG [[place] 1 tab PO BID PRN 03/12/14 10/31/19 History 5-325] Levothyroxine Sodium [Synthroid] 75 mcg PO DAILY 03/12/14 10/31/19 History Sodium Bicarbonate Tab 650 mg PO BID 03/12/14 10/31/19 History buPROPion XL [Wellbutrin XL] 300 mg PO DAILY 03/12/14 10/31/19 History traMADol HCL [Ultram] 50 mg PO Q6HR PRN 03/12/14 10/31/19 History Aspirin 81 mg PO DAILY #90 chew 03/18/14 10/31/19 Rx Ergocalciferol [Vitamin D2 50,000 unit PO FR 05/13/15 10/31/19 History (DRISDOL)] Escitalopram [Lexapro] 10 mg PO DAILY 05/13/15 10/31/19 History Furosemide [Lasix] 20 mg PO DAILY 05/13/15 10/31/19 History traZODone HCL [Desyrel] 100 mg PO HS 05/13/15 10/31/19 History Allopurinol [Zyloprim] 100 mg PO DAILY 07/20/15 10/31/19 History Carvedilol [Coreg] 6.25 mg PO BID 07/20/15 10/31/19 History Glucerna Shake 1 can PO TID-W/MEALS 07/21/15 07/21/15 History Sevelamer [Renvela] 800 mg PO AC-BID 10/31/19 10/31/19 History glipiZIDE [Glucotrol] 5 mg PO TID 10/31/19 10/31/19 History Allergies Allergy/AdvReac Type Severity Reaction Status Date / Time No Known Allergies Allergy Verified 10/30/19 22:49 Physical Exam Vitals: Vital Signs Temp Pulse Resp BP Pulse Ox 10/31/19 10:56 71 10/31/19 10:38 71 10/31/19 07:10 61 20 119/56 100 10/31/19 07:00 95.4 F L 62 20 100 10/31/19 06:18 94.3 F L 59 L 20 125/58 100 10/31/19 05:43 93.4 F L 56 L 20 115/53 100 10/31/19 04:12 92.8 F L 54 L 20 96/45 100 10/31/19 02:42 91.9 F L 60 18 107/52 100 10/31/19 02:16 59 L 18 100/52 100 10/31/19 01:17 69 16 135/69 100 10/31/19 00:22 90 18 145/71 100 10/30/19 23:40 83 20 127/61 100 10/30/19 23:19 79/49 10/30/19 22:57 127 H 100/71 10/30/19 22:52 133 H 126/74 Intake and Output 10/30/19 10/31/19 10/31/19 22:59 06:59 14:59 Intake Total 76.701 164.303 Output Total 0 5 Balance 76.701 159.303 Intake: IV 80 Sodium Chloride 0.9% 1, 80 000 ml @ 80 mls/hr IV . [id number] GHISLAINE Rx#:[id number] Intake, IV Titration 76.701 84.303 Amount Norepinephrine 32 mg In 2.021 10.242 Sodium Chloride 0.9% 218 ml @ 0.05 MCG/KG/MIN 1. 114 mls/hr IV .Q24H GHISLAINE Rx#:[id number] Propofol 1,000 mg In 74.680 74.061 Empty Bag 1 bag @ Titrate IV .Q0M GHISLAINE Rx#: [id number] Output: Urine 0 5 Uretheral (Mora) 0 Other: Weight 47.536 kg 47.536 kg Results - Lab Results Most recent lab results ABG pH 7.36 (7.35-7.45) 10/31/19 03:58 ABG pCO2 27 mmHg (35-45) L 10/31/19 03:58 ABG pO2 242 mmHg (83-108) H 10/31/19 03:58 ABG HCO3 15 mmol/L (21-25) L 10/31/19 03:58 ABG O2 Saturation 99.3 % (94-97) H 10/31/19 03:58 Calcium 7.4 mg/dL (8.4-10.2) L 10/31/19 07:39 Phosphorus 5.4 mg/dL (2.5-4.5) H 10/31/19 07:39 Magnesium 1.5 mg/dL (1.6-2.3) L 10/31/19 07:39 10/31/19 07:39 10/31/19 07:39 Assessment and Plan Plan: Assessment: 1. Acute kidney injury secondary to ATN secondary to car to pulmonary arrest. Creatinine 2.22 today. Oliguric. 2. Chronic kidney disease stage III secondary to nephrosclerosis with baseline creatinine near 2. 3. Metabolic acidosis secondary to acute kidney injury and lactic acidosis. 4. Status post cardiopulmonary arrest. CPR was performed for about 25 minutes. 5. Chronic kidney disease mineral bone disease maintained on calcitriol and Renvela outpatient. 6. Mild hyperphosphatemia secondary to chronic kidney disease. Plan: Discontinue normal saline and start on isotonic bicarb drip at 80 mL an hour. Lasix 80 mg IV once today. Repeat BMP this evening. Avoid nephrotoxins. If no improvement in renal function and urine output in the next 24-48 hours, will initiate renal replacement therapy. F/u echocardiogram. Thank you for the consult patient. I will continue to follow the patient with you during her hospital stay.
[2019-10-31] MEDS: DEXTROSE 5% IN WATER 1,000 ML with SODIUM BICARB (1 MEQ/ML) 150 ML IV SCH (14:44)
[2019-10-31 18:08] LABS: Glucose,Whole Blood 247 mg/dL (75-99)
--- NOTE | 2019-10-31 18:30 | ECHOF ---
Referral Reason:cardiopulmonary arrest/CHF MEASUREMENTS -------- HEIGHT: 152.4 cm WEIGHT: 47.2 kg BP: 125/58 IVSd: 0.9 cm (0.6 - 1.1) LVIDd: 4.3 cm (3.9 - 5.3) LVPWd: 1.2 cm (0.6 - 1.1) IVSs: 1.1 cm LVIDs: 3.8 cm LVPWs: 1.4 cm LAESV Index (A-L): 34.19 ml/m Ao Diam: 2.8 cm (2.0 - 3.7) LA Diam: 2.1 cm (2.7 - 3.8) AV Cusp: 1.3 cm (1.5 - 2.6) EPSS: 2.6 cm MV E Jontahan: 0.71 m/s MV DecT: 289 ms MV A Jonathan: 0.97 m/s MV E/A Ratio: 0.73 AV maxP.81 mmHg AV meanP.76 mmHg AR PHT: 617 ms RAP: 5.00 mmHg RVSP: 28.26 mmHg MV EF SLOPE: 26.74 mm/s (70 - 150) MV EXCURSION: 7.61 mm (> 18.000) FINDINGS -------- Sinus rhythm. This was a technically adequate study. The left ventricular size is normal. There is mild concentric left ventricular hypertrophy. There is severe global hypokinesis of LV . Overall left ventricular systolic function is severely impair ed with, an EF between 20 - 25 %. Increased LAP Grade 3 Diastolic Dysfunction. The right ventricle is normal in size. LA is moderately dilated 34-39 ml/m2 The right atrial size is normal. Interatrial and interventricular septum intact. Aortic valve is trileaflet and is mildly thickened. There is mild aortic valve sclerosis. There i s mild aortic regurgitation. The mitral valve is normal. The mitral valve leaflets are mildly thickened. Severe mitral regurgi tation is present. The tricuspid valve appears structurally normal. Mild tricuspid regurgitation present. Right vent ricular systolic pressure is normal at < 35 mmHg. There is no pulmonic regurgitation present. The aortic root size is normal. Normal inferior vena cava with normal inspiratory collapse consistent with estimated right atrial pre ssure of 5 mmHg. There is a trivial pericardial effusion present. Large Pleural Effusion. CONCLUSIONS -------- 1. Sinus rhythm. 2. This was a technically adequate study. 3. The left ventricular size is normal. 4. There is mild concentric left ventricular hypertrophy. 5. There is severe global hypokinesis of LV . 6. Overall left ventricular systolic function is severely impaired with, an EF between 20 - 25 %. 7. Increased LAP Grade 3 Diastolic Dysfunction. 8. The right ventricle is normal in size. 9. LA is moderately dilated 34-39 ml/m2 10. The right atrial size is normal. 11. Interatrial and interventricular septum intact. 12. Aortic valve is trileaflet and is mildly thickened. 13. There is mild aortic valve sclerosis. 14. There is mild aortic regurgitation. 15. The mitral valve is normal. 16. The mitral valve leaflets are mildly thickened. 17. Severe mitral regurgitation is present. 18. The tricuspid valve appears structurally normal. 19. Mild tricuspid regurgitation present. 20. Right ventricular systolic pressure is normal at < 35 mmHg. 21. There is no pulmonic regurgitation present. 22. The aortic root size is normal. 23. Normal inferior vena cava with normal inspiratory collapse consistent with estimated right atrial pressure of 5 mmHg. 24. There is a trivial pericardial effusion present. 25. Large Pleural Effusion. ACID RECOVERY OPERATOR: Kareen Jo RDCS
--- NOTE | 2019-10-31 18:44 | P.HPIM ---
History of Present Illness H&P Date: 10/31/19 Chief Complaint: Shortness of breath Renita Robbins is a 74-year-old female, who presented to [facility] emergency room and was and responsive, CPR was in progress for approximately 15 minutes prior to arrival to emergency room, initially EMS were called due to shortness of breath, however while on her way to the hospital patient became and responsive, she had a prolonged code both in the ambulance and in the emergency room, she was intubated and was admitted to intensive care unit, pulmonary and cardiology consultation were requested. Patient underwent an echocardiogram which revealed evidence of cardiomyopathy with left ventricular ejection fraction of 20-25% Past Medical History Past Medical History: Diabetes Mellitus, Mitral Valve Prolapse (MVP), Renal Disease, Thyroid Disorder Additional Past Medical History / Comment(s): STATES SOME MEMORY LOSS, HX GOUT History of Any Multi-Drug Resistant Organisms: None Reported Past Surgical History: Cholecystectomy, Heart Catheterization Additional Past Surgical History / Comment(s): DEVEN CATARACT SX, DEVEN EYELIDS SX, Past Anesthesia/Blood Transfusion Reactions: No Reported Reaction Past Psychological History: Depression Smoking Status: Former smoker Past Alcohol Use History: Occasional Past Drug Use History: None Reported - Past Family History Father Family Medical History: Unable to Obtain Additional Family Medical History / Comment(s): PT ESTRANGED FROM FATHER. Mother Family Medical History: Cancer Additional Family Medical History / Comment(s): MOTHER OF CANCER AT AGE 54- UNSURE WHAT TYPE OF CA BUT THINKS IT WAS IN HER ABDOMEN.. Sister(s) Family Medical History: Cancer Additional Family Medical History / Comment(s): Breast Medications and Allergies Home Medications Medication Instructions Recorded Confirmed Type Calcitriol 0.25 mcg PO FR 03/12/14 10/31/19 History HYDROcodone/APAP 5-325MG [[place] 1 tab PO BID PRN 03/12/14 10/31/19 History 5-325] Levothyroxine Sodium [Synthroid] 75 mcg PO DAILY 03/12/14 10/31/19 History Sodium Bicarbonate Tab 650 mg PO BID 03/12/14 10/31/19 History buPROPion XL [Wellbutrin XL] 300 mg PO DAILY 03/12/14 10/31/19 History traMADol HCL [Ultram] 50 mg PO Q6HR PRN 03/12/14 10/31/19 History Aspirin 81 mg PO DAILY #90 chew 03/18/14 10/31/19 Rx Ergocalciferol [Vitamin D2 50,000 unit PO FR 05/13/15 10/31/19 History (DRISDOL)] Escitalopram [Lexapro] 10 mg PO DAILY 05/13/15 10/31/19 History Furosemide [Lasix] 20 mg PO DAILY 05/13/15 10/31/19 History traZODone HCL [Desyrel] 100 mg PO HS 05/13/15 10/31/19 History Allopurinol [Zyloprim] 100 mg PO DAILY 07/20/15 10/31/19 History Carvedilol [Coreg] 6.25 mg PO BID 07/20/15 10/31/19 History Glucerna Shake 1 can PO TID-W/MEALS 07/21/15 07/21/15 History Sevelamer [Renvela] 800 mg PO AC-BID 10/31/19 10/31/19 History glipiZIDE [Glucotrol] 5 mg PO TID 10/31/19 10/31/19 History Allergies Allergy/AdvReac Type Severity Reaction Status Date / Time No Known Allergies Allergy Verified 10/30/19 22:49 Physical Exam Vitals: Vital Signs Temp Pulse Resp BP Pulse Ox 10/31/19 07:10 61 20 119/56 100 10/31/19 07:00 95.4 F L 62 20 100 10/31/19 06:18 94.3 F L 59 L 20 125/58 100 10/31/19 05:43 93.4 F L 56 L 20 115/53 10/31/19 04:12 92.8 F L 54 L 20 96/45 10/31/19 02:42 91.9 F L 60 18 107/52 100 10/31/19 02:16 59 L 18 100/52 100 10/31/19 01:17 69 16 135/69 100 10/31/19 00:22 90 18 145/71 100 10/30/19 23:40 83 20 127/61 100 10/30/19 23:19 79/49 10/30/19 22:57 127 H 100/71 10/30/19 22:52 133 H 126/74 Intake and Output 10/30/19 10/31/19 10/31/19 22:59 06:59 14:59 Intake Total 76.701 128.487 Output Total 0 5 Balance 76.701 123.487 Intake: IV 80 Sodium Chloride 0.9% 1, 80 000 ml @ 80 mls/hr IV . [id number] GHISLAINE Rx#:[id number] Intake, IV Titration 76.701 48.487 Amount Norepinephrine 32 mg In 2.021 Sodium Chloride 0.9% 218 ml @ 0.05 MCG/KG/MIN 1. 114 mls/hr IV .Q24H GHISLAINE Rx#:[id number] Propofol 1,000 mg In 74.680 48.487 Empty Bag 1 bag @ Titrate IV .Q0M GHISLAINE Rx#: [id number] Output: Urine 0 5 Uretheral (Mora) 0 Other: Weight 47.536 kg patient is intubated sedated maintained on mechanical ventilation HEENT head normocephalic and atraumatic Neck is supple no JVD no goiter no lymphadenopathy Chest exam reveals a few scattered rhonchi no wheezing Cardiac exam reveals regular heart sounds no gallops no murmurs Abdomen is soft nontender no organomegaly Extremity exam reveals no edema no cyanosis or clubbing Results CBC & Chem 7: 10/31/19 07:39 10/31/19 07:39 Labs: Abnormal Lab Results - Last 24 Hours (Table) 10/30/19 10/30/19 10/30/19 Range/Units 22:42 23:14 23:14 WBC 12.9 H (3.8-10.6) k/uL RBC 2.98 L (3.80-5.40) m/uL Hgb 8.9 L (11.4-16.0) gm/dL Hct 30.0 L (34.0-46.0) % MCV 100.8 H (80.0-100.0) fL MCHC 29.5 L (31.0-37.0) g/dL Neutrophils # (1.3-7.7) k/uL Lymphocytes # (Manual) 10.58 H (1.0-4.8) k/uL INR 1.2 H (<1.2) ABG pH (7.35-7.45) ABG pCO2 (35-45) mmHg ABG pO2 (83-108) mmHg ABG HCO3 (21-25) mmol/L ABG Total CO2 (19-24) mmol/L ABG O2 Saturation (94-97) % Chloride (98-107) mmol/L Carbon Dioxide (22-30) mmol/L BUN (7-17) mg/dL Creatinine (0.52-1.04) mg/dL Glucose (74-99) mg/dL POC Glucose (mg/dL) 252 H (75-99) mg/dL Plasma Lactic Acid Ham (0.7-2.0) mmol/L Calcium (8.4-10.2) mg/dL Phosphorus (2.5-4.5) mg/dL Magnesium (1.6-2.3) mg/dL AST (14-36) U/L ALT (4-34) U/L Alkaline Phosphatase (38-126) U/L Lactate Dehydrogenase (313-618) U/L Total Protein (6.3-8.2) g/dL Albumin (3.5-5.0) g/dL 10/30/19 10/30/19 10/30/19 Range/Units 23:14 23:14 23:48 WBC (3.8-10.6) k/uL RBC (3.80-5.40) m/uL Hgb (11.4-16.0) gm/dL Hct (34.0-46.0) % MCV (80.0-100.0) fL MCHC (31.0-37.0) g/dL Neutrophils # (1.3-7.7) k/uL Lymphocytes # (Manual) (1.0-4.8) k/uL INR (<1.2) ABG pH 6.93 L* (7.35-7.45) ABG pCO2 (35-45) mmHg ABG pO2 188 H (83-108) mmHg ABG HCO3 9 L* (21-25) mmol/L ABG Total CO2 10 L (19-24) mmol/L ABG O2 Saturation 97.3 H (94-97) % Chloride (98-107) mmol/L Carbon Dioxide 9 L* (22-30) mmol/L BUN 26 H (7-17) mg/dL Creatinine 2.16 H (0.52-1.04) mg/dL Glucose 327 H (74-99) mg/dL POC Glucose (mg/dL) (75-99) mg/dL Plasma Lactic Acid Ham 14.7 H* (0.7-2.0) mmol/L Calcium 8.2 L (8.4-10.2) mg/dL Phosphorus (2.5-4.5) mg/dL Magnesium (1.6-2.3) mg/dL AST 86 H (14-36) U/L ALT 49 H (4-34) U/L Alkaline Phosphatase (38-126) U/L Lactate Dehydrogenase 676 H (313-618) U/L Total Protein 5.5 L (6.3-8.2) g/dL Albumin 2.8 L (3.5-5.0) g/dL 10/31/19 10/31/19 10/31/19 Range/Units 03:58 04:00 06:10 WBC (3.8-10.6) k/uL RBC (3.80-5.40) m/uL Hgb (11.4-16.0) gm/dL Hct (34.0-46.0) % MCV (80.0-100.0) fL MCHC (31.0-37.0) g/dL Neutrophils # (1.3-7.7) k/uL Lymphocytes # (Manual) (1.0-4.8) k/uL INR (<1.2) ABG pH (7.35-7.45) ABG pCO2 27 L (35-45) mmHg ABG pO2 242 H (83-108) mmHg ABG HCO3 15 L (21-25) mmol/L ABG Total CO2 16 L (19-24) mmol/L ABG O2 Saturation 99.3 H (94-97) % Chloride (98-107) mmol/L Carbon Dioxide (22-30) mmol/L BUN (7-17) mg/dL Creatinine (0.52-1.04) mg/dL Glucose (74-99) mg/dL POC Glucose (mg/dL) 293 H (75-99) mg/dL Plasma Lactic Acid Ham 3.9 H* (0.7-2.0) mmol/L Calcium (8.4-10.2) mg/dL Phosphorus (2.5-4.5) mg/dL Magnesium (1.6-2.3) mg/dL AST (14-36) U/L ALT (4-34) U/L Alkaline Phosphatase (38-126) U/L Lactate Dehydrogenase (313-618) U/L Total Protein (6.3-8.2) g/dL Albumin (3.5-5.0) g/dL 10/31/19 10/31/19 10/31/19 Range/Units 07:00 07:39 07:39 WBC (3.8-10.6) k/uL RBC 3.28 L (3.80-5.40) m/uL Hgb 9.3 L (11.4-16.0) gm/dL Hct 29.2 L (34.0-46.0) % MCV (80.0-100.0) fL MCHC (31.0-37.0) g/dL Neutrophils # 9.1 H (1.3-7.7) k/uL Lymphocytes # (Manual) (1.0-4.8) k/uL INR (<1.2) ABG pH (7.35-7.45) ABG pCO2 (35-45) mmHg ABG pO2 (83-108) mmHg ABG HCO3 (21-25) mmol/L ABG Total CO2 (19-24) mmol/L ABG O2 Saturation (94-97) % Chloride 111 H (98-107) mmol/L Carbon Dioxide 15 L (22-30) mmol/L BUN 36 H (7-17) mg/dL Creatinine 2.22 H (0.52-1.04) mg/dL Glucose 269 H (74-99) mg/dL POC Glucose (mg/dL) 268 H (75-99) mg/dL Plasma Lactic Acid Ham (0.7-2.0) mmol/L Calcium 7.4 L (8.4-10.2) mg/dL Phosphorus 5.4 H (2.5-4.5) mg/dL Magnesium 1.5 L (1.6-2.3) mg/dL AST 152 H (14-36) U/L ALT 86 H (4-34) U/L Alkaline Phosphatase 131 H (38-126) U/L Lactate Dehydrogenase (313-618) U/L Total Protein 5.4 L (6.3-8.2) g/dL Albumin 2.6 L (3.5-5.0) g/dL Microbiology - Last 24 Hours (Table) 10/30/19 23:34 Sputum Culture - Preliminary Sputum Assessment and Plan Plan: 1. Cardiopulmonary arrest 2. Evidence of cardiomyopathy with decreased ejection fraction 20-25 percent, patient has a history of ICD placement 3. prolonged cardiac resuscitation with high possibility of aspiration patient was started on IV Zosyn 4. acute renal failure with elevated BUN and creatinine, with underlying chronic kidney disease stage III nephrology consultation was requested 5. metabolic acidosis 6. hypotension patient was started on vasopressors in intensive care unit 7. Underlying history of diabetes mellitus at this time patient is admitted to intensive care unit she is intubated sedated maintained on mechanical ventilation She is maintained on IV antibiotic pulmonary cardiology and nephrology consultations are following Prognosis is poor due to severity of illness was prolonged cardiopulmonary arrest and severe underlying cardiac disease Will follow closely
[2019-10-31 18:54] LABS: Calcium 6.8 mg/dL (8.4-10.2); Potassium 4.1 mmol/L (3.5-5.1)
--- NOTE | 2019-10-31 19:01 | P.CNNES ---
History of Present Illness Consult date: 10/31/19 Reason for Consult: Decreased attempt to wean off sedation History of Present Illness: This is a new neurology consult requested for further advice and recommendations for 74-year-old female who came in emergency room with CPR and progression. Prior to admission she had been complaining of dyspnea. Upon EMS arrival the patient was found unresponsive and asystole and CPR was immediate restarted 15 minutes prior to arrival patient was intubated in the field and given appendectomy 2. A brain CT was done on October 30 found to be negative. Patient this morning was off sedation for 20 minutes had no responsiveness and became to. On today's attempt we Draw 40 minutes and within 20 minutes she started to desats down towards the end into the 80s. The patient was able to open her eyes spontaneously to auditory stimulation but there is no spontaneous movement noted in the limbs. The patient was noted to be chewing on her endotracheal tube. Sedation was turned back on after the patient began to desaturate. Next This patient has a complicated medical history with cardiomyopathy hypertension diabetes mitral valve prolapse, renal disease and thyroid disease. Past Medical History Past Medical History: Diabetes Mellitus, Mitral Valve Prolapse (MVP), Renal Disease, Thyroid Disorder Additional Past Medical History / Comment(s): STATES SOME MEMORY LOSS, HX GOUT History of Any Multi-Drug Resistant Organisms: None Reported Past Surgical History: Cholecystectomy, Heart Catheterization Additional Past Surgical History / Comment(s): DEVEN CATARACT SX, DEVEN EYELIDS SX, Past Anesthesia/Blood Transfusion Reactions: No Reported Reaction Type of Cardiac Device: AICD Device Placement Date:: 2012 Past Psychological History: Depression Smoking Status: Former smoker Past Alcohol Use History: Occasional Past Drug Use History: None Reported - Past Family History Father Family Medical History: Unable to Obtain Additional Family Medical History / Comment(s): PT ESTRANGED FROM FATHER. Mother Family Medical History: Cancer Additional Family Medical History / Comment(s): MOTHER OF CANCER AT AGE 54- UNSURE WHAT TYPE OF CA BUT THINKS IT WAS IN HER ABDOMEN.. Sister(s) Family Medical History: Cancer Additional Family Medical History / Comment(s): Breast Medications and Allergies Home Medications Medication Instructions Recorded Confirmed Type Calcitriol 0.25 mcg PO FR 03/12/14 10/31/19 History HYDROcodone/APAP 5-325MG [[place] 1 tab PO BID PRN 03/12/14 10/31/19 History 5-325] Levothyroxine Sodium [Synthroid] 75 mcg PO DAILY 03/12/14 10/31/19 History Sodium Bicarbonate Tab 650 mg PO BID 03/12/14 10/31/19 History buPROPion XL [Wellbutrin XL] 300 mg PO DAILY 03/12/14 10/31/19 History traMADol HCL [Ultram] 50 mg PO Q6HR PRN 03/12/14 10/31/19 History Aspirin 81 mg PO DAILY #90 chew 03/18/14 10/31/19 Rx Ergocalciferol [Vitamin D2 50,000 unit PO FR 05/13/15 10/31/19 History (DRISDOL)] Escitalopram [Lexapro] 10 mg PO DAILY 05/13/15 10/31/19 History Furosemide [Lasix] 20 mg PO DAILY 05/13/15 10/31/19 History traZODone HCL [Desyrel] 100 mg PO HS 05/13/15 10/31/19 History Allopurinol [Zyloprim] 100 mg PO DAILY 07/20/15 10/31/19 History Carvedilol [Coreg] 6.25 mg PO BID 07/20/15 10/31/19 History Glucerna Shake 1 can PO TID-W/MEALS 07/21/15 07/21/15 History Sevelamer [Renvela] 800 mg PO AC-BID 10/31/19 10/31/19 History glipiZIDE [Glucotrol] 5 mg PO TID 10/31/19 10/31/19 History Allergies Allergy/AdvReac Type Severity Reaction Status Date / Time No Known Allergies Allergy Verified 10/30/19 22:49 Physical Examination - Vital Signs Vital Signs: Vital Signs Temp Pulse Resp BP Pulse Ox 10/31/19 17:45 77 20 98 10/31/19 17:30 85 29 H 95 10/31/19 17:15 83 36 H 83 L 10/31/19 17:00 73 20 99 10/31/19 16:45 72 20 100 10/31/19 16:30 73 20 100 10/31/19 16:15 74 25 H 100 10/31/19 16:00 98.2 F 75 20 100 10/31/19 15:45 70 20 100 10/31/19 15:30 77 20 100 10/31/19 15:27 75 10/31/19 15:15 74 20 100 10/31/19 15:02 79 10/31/19 15:00 75 20 100 10/31/19 14:45 74 20 100 10/31/19 14:30 73 21 100 10/31/19 14:15 74 20 100 10/31/19 14:00 75 20 100 10/31/19 13:45 75 20 100 10/31/19 13:30 76 20 100 10/31/19 13:15 74 20 100 10/31/19 13:00 71 20 100 10/31/19 12:45 81 20 99 10/31/19 12:30 75 20 100 10/31/19 12:15 75 20 100 10/31/19 12:00 99.5 F 73 20 100 10/31/19 11:45 73 20 100 10/31/19 11:30 99.5 F 74 20 99 10/31/19 11:15 73 20 100 10/31/19 11:00 99.3 F 72 20 121/62 100 10/31/19 10:56 71 10/31/19 10:45 70 20 100 10/31/19 10:38 71 10/31/19 10:30 99.3 F 71 20 120/61 100 10/31/19 10:15 70 20 117/57 100 10/31/19 10:00 37.3 F L 69 20 116/55 100 10/31/19 09:45 70 20 116/54 100 20 09:30 98.6 F 69 20 120/56 100 10/31/19 09:15 68 20 116/56 100 10/31/19 09:00 97.7 F 67 20 117/57 100 20 08:45 66 20 112/53 100 0520 08:30 97.0 F L 65 20 112/55 100 20 08:15 64 20 119/56 100 20 08:00 96.4 F L 64 20 119/56 100 0520 07:45 64 20 120/57 100 0520 07:30 95.7 F L 63 20 118/57 100 0520 07:15 62 20 119/56 100 0520 07:10 61 20 119/56 100 05//20 07:00 95.4 F L 62 20 100 10/31/19 06:18 94.3 F L 59 L 20 125/58 100 10/31/19 05:43 93.4 F L 56 L 20 115/53 100 10/31/19 04:12 92.8 F L 54 L 20 96/45 100 10/31/19 02:42 91.9 F L 60 18 107/52 100 10/31/19 02:16 59 L 18 100/52 100 10/31/19 01:17 69 16 135/69 100 10/31/19 00:22 90 18 145/71 100 10/30/19 23:40 83 20 127/61 100 10/30/19 23:19 79/49 10/30/19 22:57 127 H 100/71 10/30/19 22:52 133 H 126/74 Intake and Output 10/31/19 10/31/19 10/31/19 06:59 14:59 22:59 Intake Total 76.701 164.303 10.457 Output Total 0 5 Balance 76.701 159.303 10.457 Intake: IV 80 Sodium Chloride 0.9% 1, 80 000 ml @ 80 mls/hr IV . [id number] GHISLAINE Rx#:[id number] Intake, IV Titration 76.701 84.303 10.457 Amount Norepinephrine 32 mg In 2.021 10.242 Sodium Chloride 0.9% 218 ml @ 0.05 MCG/KG/MIN 1. 114 mls/hr IV .Q24H GHISLAINE Rx#:[id number] Propofol 1,000 mg In 74.680 74.061 10.457 Empty Bag 1 bag @ Titrate IV .Q0M GHISLAINE Rx#: [id number] Output: Urine 0 5 Uretheral (Mora) 0 Other: Voiding Method Indwelling Catheter Indwelling Catheter Weight 47.536 kg ABP, PAP, CO, CI - Last 8 Hours Arterial Blood Pressure 132/55 Arterial Blood Pressure 137/59 Arterial Blood Pressure 148/61 Arterial Blood Pressure 129/54 Arterial Blood Pressure 134/54 Arterial Blood Pressure 127/55 Arterial Blood Pressure 129/55 Arterial Blood Pressure 126/53 Arterial Blood Pressure 129/54 Arterial Blood Pressure 127/55 Arterial Blood Pressure 125/54 Arterial Blood Pressure 132/54 Arterial Blood Pressure 134/55 Arterial Blood Pressure 133/54 Arterial Blood Pressure 132/53 Arterial Blood Pressure 89/85 Arterial Blood Pressure 130/53 Arterial Blood Pressure 133/53 Arterial Blood Pressure 132/51 Arterial Blood Pressure 125/48 Arterial Blood Pressure 127/52 Arterial Blood Pressure 139/56 Arterial Blood Pressure 141/56 Arterial Blood Pressure 141/56 Arterial Blood Pressure 141/57 Arterial Blood Pressure 138/55 Arterial Blood Pressure 138/56 Arterial Blood Pressure 135/54 Examination: Gen. physical exam patient on ventilator intubated. No spontaneous movements noted in the extremities Notable rhythmic chewing motion noted with the endotracheal tube. Pupils: 2 mm reactive to light but sluggish. No withdrawal to tactile stimulation on plantar stimulation. Gag reflex intact but suppressed. Results - Laboratory Findings CBC and BMP: 10/31/19 07:39 10/31/19 07:39 Abnormal Lab Findings: Abnormal Labs 10/30/19 10/30/19 10/30/19 22:42 23:14 23:14 WBC 12.9 H RBC 2.98 L Hgb 8.9 L Hct 30.0 L MCV 100.8 H MCHC 29.5 L Neutrophils # Lymphocytes # (Manual) 10.58 H INR 1.2 H ABG pH ABG pCO2 ABG pO2 ABG HCO3 ABG Total CO2 ABG O2 Saturation Chloride Carbon Dioxide BUN Creatinine Glucose POC Glucose (mg/dL) 252 H Plasma Lactic Acid Ham Calcium Phosphorus Magnesium AST ALT Alkaline Phosphatase Lactate Dehydrogenase Total Protein Albumin 10/30/19 10/30/19 10/30/19 23:14 23:14 23:48 WBC RBC Hgb Hct MCV MCHC Neutrophils # Lymphocytes # (Manual) INR ABG pH 6.93 L* ABG pCO2 ABG pO2 188 H ABG HCO3 9 L* ABG Total CO2 10 L ABG O2 Saturation 97.3 H Chloride Carbon Dioxide 9 L* BUN 26 H Creatinine 2.16 H Glucose 327 H POC Glucose (mg/dL) Plasma Lactic Acid Ham 14.7 H* Calcium 8.2 L Phosphorus Magnesium AST 86 H ALT 49 H Alkaline Phosphatase Lactate Dehydrogenase 676 H Total Protein 5.5 L Albumin 2.8 L 10/31/19 10/31/19 10/31/19 03:58 04:00 06:10 WBC RBC Hgb Hct MCV MCHC Neutrophils # Lymphocytes # (Manual) INR ABG pH ABG pCO2 27 L ABG pO2 242 H ABG HCO3 15 L ABG Total CO2 16 L ABG O2 Saturation 99.3 H Chloride Carbon Dioxide BUN Creatinine Glucose POC Glucose (mg/dL) 293 H Plasma Lactic Acid Ham 3.9 H* Calcium Phosphorus Magnesium AST ALT Alkaline Phosphatase Lactate Dehydrogenase Total Protein Albumin 10/31/19 10/31/19 10/31/19 07:00 07:39 07:39 WBC RBC 3.28 L Hgb 9.3 L Hct 29.2 L MCV MCHC Neutrophils # 9.1 H Lymphocytes # (Manual) INR ABG pH ABG pCO2 ABG pO2 ABG HCO3 ABG Total CO2 ABG O2 Saturation Chloride 111 H Carbon Dioxide 15 L BUN 36 H Creatinine 2.22 H Glucose 269 H POC Glucose (mg/dL) 268 H Plasma Lactic Acid Ham Calcium 7.4 L Phosphorus 5.4 H Magnesium 1.5 L AST 152 H ALT 86 H Alkaline Phosphatase 131 H Lactate Dehydrogenase Total Protein 5.4 L Albumin 2.6 L 10/31/19 10/31/19 12:03 18:07 WBC RBC Hgb Hct MCV MCHC Neutrophils # Lymphocytes # (Manual) INR ABG pH ABG pCO2 ABG pO2 ABG HCO3 ABG Total CO2 ABG O2 Saturation Chloride Carbon Dioxide BUN Creatinine Glucose POC Glucose (mg/dL) 286 H 247 H Plasma Lactic Acid Ham Calcium Phosphorus Magnesium AST ALT Alkaline Phosphatase Lactate Dehydrogenase Total Protein Albumin Assessment and Plan Assessment: This is a 74-year-old female who is status post cardiac arrest who remains intubated is having difficulty weaning off sedation. 2 attempts today were made to wean this patient off ,20 minutes this morning and then later this afternoon 40 minutes. Towards the last 20 minutes of the 40 minute. The patient desaturated down to the 80's. The patient did however spontaneously open her eyes to auditory stimulation. She did not however move any extremities purposefully and did not withdraw to tactile stimulation. Rhythmic movement was noted with the patient chewing on the endotracheal tube. Recommendations 1. Recommend again further attempts for withdrawal sedation. An EEG would be helpful to rule out possible subclinical seizure activity especially in light of the rhythmic chewing noted on the endotracheal tube. 2. A follow-up computed tomography scan of the head noncontrast is recommended to further evaluate for anoxic brain injury. 3. Continue with neuro checks per nursing protocol This patient's prognosis remains very guarded. Further recommendations will be made as this case evolves.
[2019-10-31 19:36] LABS: Magnesium 2.1 mg/dL (1.6-2.3); Phosphorus 5.5 mg/dL (2.5-4.5)
[2019-10-31 20:34] LABS: Ferritin 1426.4 ng/mL (10.0-291.0)
[2019-10-31] MEDS: HEPARIN SODIUM,PORCINE 5,000 UNIT/ML 1 ML VIAL SQ SCH (20:57)
[2019-10-31] MEDS: PIPERACILLIN-TAZOBACTAM 3.375 GM in SODIUM CHLORIDE 0.9% 100 ML IVPB SCH (20:57)
[2019-10-31] MEDS: NOREPINEPHRINE 32 MG in SODIUM CHLORIDE 0.9% 218 ML IV SCH (22:29)
[2019-10-31 23:56] LABS: Glucose,Whole Blood 182 mg/dL (75-99)
[2019-11-01] MEDS: INSULIN ASPART (NovoLOG) 100 UNIT/ML VIAL SQ SCH ×5 (00:07→23:56)
[2019-11-01] MEDS: IPRATROPIUM-ALBUTEROL 3 ML NEB INHALATION SCH ×6 (03:54→23:24)
[2019-11-01] MEDS: PIPERACILLIN-TAZOBACTAM 3.375 GM in SODIUM CHLORIDE 0.9% 100 ML IVPB SCH ×2 (04:19→12:21)
[2019-11-01] MEDS: DEXTROSE 5% IN WATER 1,000 ML with SODIUM BICARB (1 MEQ/ML) 150 ML IV SCH (04:19)
[2019-11-01] MEDS: PROPOFOL 1,000 MG in EMPTY BAG 1 BAG IV SCH ×2 (04:20→20:32)
[2019-11-01 05:18] LABS: ABG Base Excess -3.9 mmol/L; ABG HCO3 20 mmol/L (21-25); ABG Oxygen Saturation 98.9 % (94-97); ABG PCO2 29 mmHg (35-45); ABG PH 7.45 (7.35-7.45); ABG PO2 190 mmHg (83-108); ABG TCO2 21 mmol/L (19-24); Allen Test Performed? Yes
[2019-11-01 05:38] LABS: Basophils % (A) 0 %; Eosinophils % (A) 0 %; HCT 30.2 % (34.0-46.0); HGB 9.8 gm/dL (11.4-16.0); Lymphocytes # (A) 1.5 k/uL (1.0-4.8); Lymphocytes % (A) 11 %; MCH 28.2 pg (25.0-35.0); MCHC 32.4 g/dL (31.0-37.0); MCV 87.1 fL (80.0-100.0); Mean Platelet Volume 8.8; Monocytes # (A) 0.3 k/uL (0-1.0); Monocytes % (A) 2 %; Neutrophils # (A) 11.4 k/uL (1.3-7.7); Neutrophils % (A) 86 %; Platelet Count 179 k/uL (150-450); RBC 3.46 m/uL (3.80-5.40); RDW 13.6 % (11.5-15.5); WBC 13.2 k/uL (3.8-10.6)
[2019-11-01 05:41] LABS: Glucose,Whole Blood 113 mg/dL (75-99)
[2019-11-01 06:01] LABS: Ionized Calcium 4.2 mg/dL (4.5-5.3)
[2019-11-01 06:09] LABS: Albumin 2.5 g/dL (3.5-5.0); Calcium 7.1 mg/dL (8.4-10.2); Phosphorus 4.9 mg/dL (2.5-4.5); Potassium 3.7 mmol/L (3.5-5.1); Total Bilirubin 0.2 mg/dL (0.2-1.3); Total Protein 5.2 g/dL (6.3-8.2)
--- NOTE | 2019-11-01 07:16 | XR ---
EXAMINATION TYPE: XR chest 1V portable DATE OF EXAM: 11/01/2019 Comparison: 10/31/2019 Clinical History: 74-year-old female Tube placement Findings: Left anterior chest wall AICD generator with right ventricular lead. ET tube is satisfactory. NG tube has been pulled back slightly with side hole now above the GE junction. Heart remains mildly enlarge d. Increasing mid and lower right lung opacities and continued retrocardiac and left basilar opacity. Diffuse interstitial prominence. Exam was performed semiupright. Impression: 1. Correlate for continued pulmonary vascular congestion with small to moderate right and small left pleural effusions with adjacent atelectasis and/or consolidation. Aeration slightly worsened at the l ower lungs. Exam performed semiupright. 2. NG tube has been pulled back slightly. The sidehole is above the GE junction. Advance by 6 cm and reassessed at follow-up.
--- NOTE | 2019-11-01 08:17 | P.PN ---
Subjective Progress Note Date: 11/01/19 Principal diagnosis: cardiopulmonary arrest I was asked to see this patient as a consult for further cardiac evaluation for cardiomyopathy as well as heart failure. When I arrived the room, the patient was intubated and she is on mechanical ventilation. The patient is a 74-year- old -[place] female patient with an extensive past medical history consistent off severe nonischemic cardiomyopathy and status post biVICD, hypertension, dyslipidemia, and chronic kidney disease. Apparently the patient was brought by ambulance to the emergency room unresponsive with ongoing CPR. No history is available at this point. The history was taken from the electronic medical records. When the patient was arrived she was under CPR with V. fib as well as asystole. Knowing formation available about the clinical scenario before the patient presented to the emergency room. The patient underwent a heart catheterization in 2014 and that showed normal coronaries. An echocardiogram was also performed in 2014 and that revealed cardiomyopathy with EF between 20-25% and because she was on maximize medical treatment with no improvement in the ejection fraction subsequently she underwent BiV ICD placement. the patient was seen today, October [id number]. She continues to be intubated on mechanical intubation. Hemodynamically she is stable today. Yesterday she was receiving norepinephrine. The chest x-ray was reviewed and showed possible underlying pneumonia with component off heart failure. I am going to restart the patient on the cardiomyopathy medications including Coreg at a small dose with 3.125 mg by mouth twice a day. Also would suggest start the patient on Lasix if it's okay from the nephrology standpoint overview. Her creatinine this morning is 2.77. Her baseline is around that. The echocardiogram was reviewed and showed severe cardiomyopathy with ejection fraction between 25-30% with global hypokinesia. Objective - Vital Signs Vital signs: Vital Signs Temp 97.8 F 11/01/19 04:00 Pulse 80 11/01/19 08:09 Resp 20 11/01/19 07:00 BP 130/56 11/01/19 05:00 Pulse Ox 100 11/01/19 07:00 Intake & Output 10/31/19 11/01/19 11/01/19 18:59 06:59 18:59 Intake Total 3254.760 1075.482 80 Output Total 233 405 30 Balance 3021.760 670.482 50 Weight 47.536 kg 50.4 kg Intake: IV 620 880 80 Sodium Chloride 0.9% 1, 620 880 80 000 ml @ 80 mls/hr IV . [id number] [facility] Rx#:[id number] Intake, IV Titration 2634.760 195.482 Amount Dextrose 5% in Water 1, 340 80 000 ml @ 80 mls/hr IV . [id number] [facility] with Sodium Bicarb (1 Meq/ml) 150 ml Rx#:[id number] Magnesium Sulfate-D5w Pmx 200 1 gm In Dextrose/Water 1 100ml.bag @ 100 mls/hr IVPB Q1H [facility] Rx#: [id number] Norepinephrine 32 mg In 10.242 Sodium Chloride 0.9% 218 ml @ 0.05 MCG/KG/MIN 1. 114 mls/hr IV .Q24H [facility] Rx#:[id number] Piperacillin-Tazobactam 3 100 .375 gm In Sodium Chloride 0.9% 100 ml @ 25 mls/hr IVPB Q8H [facility] Rx#: [id number] Propofol 1,000 mg In 84.518 15.482 Empty Bag 1 bag @ Titrate IV .Q0M [facility] Rx#: [id number] Sodium Chloride 0.9% 1, 2000 000 ml @ 999 mls/hr IV . Q1H1M ONE Rx#:[id number] Output: Urine 203 405 30 Oral Regurgitation 30 Other: Voiding Method Indwelling Catheter Indwelling Catheter ABP, PAP, CO, CI - Last Documented Arterial Blood Pressure 123/36 - Constitutional General appearance: Present: no acute distress - Respiratory Respiratory: bilateral: CTA - Cardiovascular Rhythm: regular Heart sounds: normal: S1, S2 - Labs CBC & Chem 7: 11/01/19 05:10 11/01/19 05:30 Labs: Abnormal Lab Results - Last 24 Hours (Table) 10/30/19 10/30/19 10/31/19 Range/Units 23:14 23:14 07:39 WBC (3.8-10.6) k/uL RBC 3.28 L (3.80-5.40) m/uL Hgb 9.3 L (11.4-16.0) gm/dL Hct 29.2 L (34.0-46.0) % Neutrophils # 9.1 H (1.3-7.7) k/uL ABG pCO2 (35-45) mmHg ABG pO2 (83-108) mmHg ABG HCO3 (21-25) mmol/L ABG O2 Saturation (94-97) % Chloride (98-107) mmol/L Carbon Dioxide (22-30) mmol/L BUN (7-17) mg/dL Creatinine (0.52-1.04) mg/dL Glucose (74-99) mg/dL POC Glucose (mg/dL) (75-99) mg/dL Calcium (8.4-10.2) mg/dL Ionized Calcium Janene (4.5-5.3) mg/dL Phosphorus (2.5-4.5) mg/dL Magnesium (1.6-2.3) mg/dL Ferritin 1426.4 H (10.0-291.0) ng/mL AST (14-36) U/L ALT (4-34) U/L Alkaline Phosphatase (38-126) U/L Total Protein (6.3-8.2) g/dL Albumin (3.5-5.0) g/dL Procalcitonin 0.14 H (0.02-0.09) ng/mL 10/31/19 10/31/19 10/31/19 Range/Units 07:39 12:03 18:07 WBC (3.8-10.6) k/uL RBC (3.80-5.40) m/uL Hgb (11.4-16.0) gm/dL Hct (34.0-46.0) % Neutrophils # (1.3-7.7) k/uL ABG pCO2 (35-45) mmHg ABG pO2 (83-108) mmHg ABG HCO3 (21-25) mmol/L ABG O2 Saturation (94-97) % Chloride 111 H (98-107) mmol/L Carbon Dioxide 15 L (22-30) mmol/L BUN 36 H (7-17) mg/dL Creatinine 2.22 H (0.52-1.04) mg/dL Glucose 269 H (74-99) mg/dL POC Glucose (mg/dL) 286 H 247 H (75-99) mg/dL Calcium 7.4 L (8.4-10.2) mg/dL Ionized Calcium Janene (4.5-5.3) mg/dL Phosphorus 5.4 H (2.5-4.5) mg/dL Magnesium 1.5 L (1.6-2.3) mg/dL Ferritin (10.0-291.0) ng/mL AST 152 H (14-36) U/L ALT 86 H (4-34) U/L Alkaline Phosphatase 131 H (38-126) U/L Total Protein 5.4 L (6.3-8.2) g/dL Albumin 2.6 L (3.5-5.0) g/dL Procalcitonin (0.02-0.09) ng/mL 10/31/19 10/31/19 10/31/19 Range/Units 18:25 19:07 23:54 WBC (3.8-10.6) k/uL RBC (3.80-5.40) m/uL Hgb (11.4-16.0) gm/dL Hct (34.0-46.0) % Neutrophils # (1.3-7.7) k/uL ABG pCO2 (35-45) mmHg ABG pO2 (83-108) mmHg ABG HCO3 (21-25) mmol/L ABG O2 Saturation (94-97) % Chloride 112 H (98-107) mmol/L Carbon Dioxide 15 L (22-30) mmol/L BUN 36 H (7-17) mg/dL Creatinine 2.50 H (0.52-1.04) mg/dL Glucose 228 H (74-99) mg/dL POC Glucose (mg/dL) 182 H (75-99) mg/dL Calcium 6.8 L (8.4-10.2) mg/dL Ionized Calcium Janene (4.5-5.3) mg/dL Phosphorus 5.5 H (2.5-4.5) mg/dL Magnesium (1.6-2.3) mg/dL Ferritin (10.0-291.0) ng/mL AST (14-36) U/L ALT (4-34) U/L Alkaline Phosphatase (38-126) U/L Total Protein (6.3-8.2) g/dL Albumin (3.5-5.0) g/dL Procalcitonin (0.02-0.09) ng/mL 11/01/19 11/01/19 11/01/19 Range/Units 05:10 05:14 05:30 WBC 13.2 H (3.8-10.6) k/uL RBC 3.46 L (3.80-5.40) m/uL Hgb 9.8 L (11.4-16.0) gm/dL Hct 30.2 L (34.0-46.0) % Neutrophils # 11.4 H (1.3-7.7) k/uL ABG pCO2 29 L (35-45) mmHg ABG pO2 190 H (83-108) mmHg ABG HCO3 20 L (21-25) mmol/L ABG O2 Saturation 98.9 H (94-97) % Chloride (98-107) mmol/L Carbon Dioxide (22-30) mmol/L BUN 42 H (7-17) mg/dL Creatinine 2.77 H (0.52-1.04) mg/dL Glucose 102 H (74-99) mg/dL POC Glucose (mg/dL) (75-99) mg/dL Calcium 7.1 L (8.4-10.2) mg/dL Ionized Calcium Janene 4.2 L (4.5-5.3) mg/dL Phosphorus 4.9 H (2.5-4.5) mg/dL Magnesium (1.6-2.3) mg/dL Ferritin (10.0-291.0) ng/mL AST 186 H (14-36) U/L ALT 65 H (4-34) U/L Alkaline Phosphatase (38-126) U/L Total Protein 5.2 L (6.3-8.2) g/dL Albumin 2.5 L (3.5-5.0) g/dL Procalcitonin (0.02-0.09) ng/mL 11/01/19 Range/Units 05:38 WBC (3.8-10.6) k/uL RBC (3.80-5.40) m/uL Hgb (11.4-16.0) gm/dL Hct (34.0-46.0) % Neutrophils # (1.3-7.7) k/uL ABG pCO2 (35-45) mmHg ABG pO2 (83-108) mmHg ABG HCO3 (21-25) mmol/L ABG O2 Saturation (94-97) % Chloride (98-107) mmol/L Carbon Dioxide (22-30) mmol/L BUN (7-17) mg/dL Creatinine (0.52-1.04) mg/dL Glucose (74-99) mg/dL POC Glucose (mg/dL) 113 H (75-99) mg/dL Calcium (8.4-10.2) mg/dL Ionized Calcium Janene (4.5-5.3) mg/dL Phosphorus (2.5-4.5) mg/dL Magnesium (1.6-2.3) mg/dL Ferritin (10.0-291.0) ng/mL AST (14-36) U/L ALT (4-34) U/L Alkaline Phosphatase (38-126) U/L Total Protein (6.3-8.2) g/dL Albumin (3.5-5.0) g/dL Procalcitonin (0.02-0.09) ng/mL Microbiology - Last 24 Hours (Table) 10/30/19 23:56 Blood Culture - Preliminary Blood No Growth after 24 hours 10/30/19 23:34 Gram Stain - Preliminary Sputum Sputum Culture - Preliminary Assessment and Plan Assessment: Assessment #1 cardiopulmonary arrest of unknown etiology at this point. #2 rule out cardiac arrhythmia in the setting of severe cardiomyopathy #3 known severe cardiomyopathy and status post ICD #4 possible underlying pneumonia #5 congestive heart failure exacerbation secondary to systolic dysfunction #6 chronic kidney disease #7 diabetes #8 multiple comorbid conditions Plan #1 restart the patient on small dose of beta ernesto with Coreg #2 the echocardiogram was reviewed and described above #3 restart the patient on Lasix IV this okay from the nephrology standpoint overview #4 follow-up with the patient
[2019-11-01] MEDS: ASPIRIN 81 MG PO SCH (09:00)
[2019-11-01] MEDS: HEPARIN SODIUM,PORCINE 5,000 UNIT/ML 1 ML VIAL SQ SCH ×2 (09:00→20:32)
[2019-11-01] MEDS: PANTOPRAZOLE 40 MG/10 ML VIAL IVP SCH (09:00)
[2019-11-01] MEDS: CHLORHEXIDINE GLUCONATE 15 ML CUP MUCOUS MEM SCH ×2 (09:00→20:32)
[2019-11-01] MEDS: CARVEDILOL 3.125 MG TAB PO SCH ×2 (09:11→18:22)
[2019-11-01] MEDS ORDERED: CALCIUM GLUCONATE 1 GM in SODIUM CHLORIDE 0.9% 100 ML IVPB ONE (10:00)
[2019-11-01] MEDS: SODIUM CHLORIDE 0.9% 500 ML 500 ML IV SCH (10:45)
[2019-11-01] MEDS ORDERED: POTASSIUM BICARBONATE/CIT AC 20 MEQ TABLET.EFF PO ONE (11:00)
[2019-11-01] MEDS ORDERED: FUROSEMIDE 10 MG/ML 10 ML VIAL IV ONE (11:00)
--- NOTE | 2019-11-01 11:17 | P.PN ---
Subjective Patient is seen in follow-up for acute kidney injury on chronic kidney disease. Patient has chronic kidney disease stage III with baseline creatinine near 2 secondary to nephrosclerosis. Patient was found unresponsive at home and had a cardiac arrest. Renal function is a little worse today. Urine output 30-40 mL an hour. She did receive 1 dose of IV Lasix yesterday. Currently intubated. On 35% FiO2. Vital signs are stable. General: The patient appeared well nourished and normally developed. HEENT: Head exam is unremarkable. Neck is without jugular venous distension. LUNGS: Lungs are clear to auscultation and percussion. Breath sounds decreased. HEART: Rate and Rhythm are regular. ABDOMEN: Soft. No distention noted. EXTREMITITES: No edema. Objective - Vital Signs Vital signs: Vital Signs Temp 98.1 F 11/01/19 08:00 Pulse 81 11/01/19 10:00 Resp 20 11/01/19 10:00 BP 130/56 11/01/19 05:00 Pulse Ox 100 11/01/19 10:00 Intake & Output 10/31/19 11/01/19 11/01/19 18:59 06:59 18:59 Intake Total 3254.760 1075.482 95.513 Output Total 233 405 30 Balance 3021.760 670.482 65.513 Weight 47.536 kg 50.4 kg 50.4 kg Intake: IV 620 880 80 Sodium Chloride 0.9% 1, 620 880 80 000 ml @ 80 mls/hr IV . [id number] [facility] Rx#:[id number] Intake, IV Titration 2634.760 195.482 15.513 Amount Dextrose 5% in Water 1, 340 80 000 ml @ 80 mls/hr IV . [id number] [facility] with Sodium Bicarb (1 Meq/ml) 150 ml Rx#:[id number] Magnesium Sulfate-D5w Pmx 200 1 gm In Dextrose/Water 1 100ml.bag @ 100 mls/hr IVPB Q1H [facility] Rx#: [id number] Norepinephrine 32 mg In 10.242 Sodium Chloride 0.9% 218 ml @ 0.05 MCG/KG/MIN 1. 114 mls/hr IV .Q24H [facility] Rx#:[id number] Piperacillin-Tazobactam 3 100 .375 gm In Sodium Chloride 0.9% 100 ml @ 25 mls/hr IVPB Q8H [facility] Rx#: [id number] Propofol 1,000 mg In 84.518 15.482 15.513 Empty Bag 1 bag @ Titrate IV .Q0M [facility] Rx#: [id number] Sodium Chloride 0.9% 1, 2000 000 ml @ 999 mls/hr IV . Q1H1M ONE Rx#:[id number] Output: Urine 203 405 30 Oral Regurgitation 30 Other: Voiding Method Indwelling Catheter Indwelling Catheter Indwelling Catheter ABP, PAP, CO, CI - Last Documented Arterial Blood Pressure 145/49 - Labs CBC & Chem 7: 11/01/19 05:10 11/01/19 05:30 Labs: Abnormal Lab Results - Last 24 Hours (Table) 10/30/19 10/30/19 10/31/19 Range/Units 23:14 23:14 12:03 WBC (3.8-10.6) k/uL RBC (3.80-5.40) m/uL Hgb (11.4-16.0) gm/dL Hct (34.0-46.0) % Neutrophils # (1.3-7.7) k/uL ABG pCO2 (35-45) mmHg ABG pO2 (83-108) mmHg ABG HCO3 (21-25) mmol/L ABG O2 Saturation (94-97) % Chloride (98-107) mmol/L Carbon Dioxide (22-30) mmol/L BUN (7-17) mg/dL Creatinine (0.52-1.04) mg/dL Glucose (74-99) mg/dL POC Glucose (mg/dL) 286 H (75-99) mg/dL Calcium (8.4-10.2) mg/dL Ionized Calcium Janene (4.5-5.3) mg/dL Phosphorus (2.5-4.5) mg/dL Ferritin 1426.4 H (10.0-291.0) ng/mL AST (14-36) U/L ALT (4-34) U/L Total Protein (6.3-8.2) g/dL Albumin (3.5-5.0) g/dL Procalcitonin 0.14 H (0.02-0.09) ng/mL 10/31/19 10/31/19 10/31/19 Range/Units 18:07 18:25 19:07 WBC (3.8-10.6) k/uL RBC (3.80-5.40) m/uL Hgb (11.4-16.0) gm/dL Hct (34.0-46.0) % Neutrophils # (1.3-7.7) k/uL ABG pCO2 (35-45) mmHg ABG pO2 (83-108) mmHg ABG HCO3 (21-25) mmol/L ABG O2 Saturation (94-97) % Chloride 112 H (98-107) mmol/L Carbon Dioxide 15 L (22-30) mmol/L BUN 36 H (7-17) mg/dL Creatinine 2.50 H (0.52-1.04) mg/dL Glucose 228 H (74-99) mg/dL POC Glucose (mg/dL) 247 H (75-99) mg/dL Calcium 6.8 L (8.4-10.2) mg/dL Ionized Calcium Janene (4.5-5.3) mg/dL Phosphorus 5.5 H (2.5-4.5) mg/dL Ferritin (10.0-291.0) ng/mL AST (14-36) U/L ALT (4-34) U/L Total Protein (6.3-8.2) g/dL Albumin (3.5-5.0) g/dL Procalcitonin (0.02-0.09) ng/mL 10/31/19 11/01/19 11/01/19 Range/Units 23:54 05:10 05:14 WBC 13.2 H (3.8-10.6) k/uL RBC 3.46 L (3.80-5.40) m/uL Hgb 9.8 L (11.4-16.0) gm/dL Hct 30.2 L (34.0-46.0) % Neutrophils # 11.4 H (1.3-7.7) k/uL ABG pCO2 29 L (35-45) mmHg ABG pO2 190 H (83-108) mmHg ABG HCO3 20 L (21-25) mmol/L ABG O2 Saturation 98.9 H (94-97) % Chloride (98-107) mmol/L Carbon Dioxide (22-30) mmol/L BUN (7-17) mg/dL Creatinine (0.52-1.04) mg/dL Glucose (74-99) mg/dL POC Glucose (mg/dL) 182 H (75-99) mg/dL Calcium (8.4-10.2) mg/dL Ionized Calcium Janene (4.5-5.3) mg/dL Phosphorus (2.5-4.5) mg/dL Ferritin (10.0-291.0) ng/mL AST (14-36) U/L ALT (4-34) U/L Total Protein (6.3-8.2) g/dL Albumin (3.5-5.0) g/dL Procalcitonin (0.02-0.09) ng/mL 11/01/19 11/01/19 Range/Units 05:30 05:38 WBC (3.8-10.6) k/uL RBC (3.80-5.40) m/uL Hgb (11.4-16.0) gm/dL Hct (34.0-46.0) % Neutrophils # (1.3-7.7) k/uL ABG pCO2 (35-45) mmHg ABG pO2 (83-108) mmHg ABG HCO3 (21-25) mmol/L ABG O2 Saturation (94-97) % Chloride (98-107) mmol/L Carbon Dioxide (22-30) mmol/L BUN 42 H (7-17) mg/dL Creatinine 2.77 H (0.52-1.04) mg/dL Glucose 102 H (74-99) mg/dL POC Glucose (mg/dL) 113 H (75-99) mg/dL Calcium 7.1 L (8.4-10.2) mg/dL Ionized Calcium Janene 4.2 L (4.5-5.3) mg/dL Phosphorus 4.9 H (2.5-4.5) mg/dL Ferritin (10.0-291.0) ng/mL AST 186 H (14-36) U/L ALT 65 H (4-34) U/L Total Protein 5.2 L (6.3-8.2) g/dL Albumin 2.5 L (3.5-5.0) g/dL Procalcitonin (0.02-0.09) ng/mL Microbiology - Last 24 Hours (Table) 10/30/19 23:56 Blood Culture - Preliminary Blood No Growth after 24 hours 10/30/19 23:34 Gram Stain - Preliminary Sputum Sputum Culture - Preliminary Assessment and Plan Plan: Assessment: 1. Acute kidney injury secondary to ATN secondary to cardiopulmonary arrest. Creatinine 2.77 today. Urine output 30-40 mL an hour. 2. Chronic kidney disease stage III secondary to nephrosclerosis with baseline creatinine near 2. 3. Metabolic acidosis secondary to acute kidney injury and lactic acidosis. Improved. 4. Status post cardiopulmonary arrest. CPR was performed for about 25 minutes. 5. Chronic kidney disease mineral bone disease maintained on calcitriol and Renvela outpatient. 6. Mild hyperphosphatemia secondary to chronic kidney disease. Better. 7. Acute systolic CHF with ejection fraction 20-25% with severe mitral regurgitation. Plan: Hep-Lock IV fluids. Tube feeds to be started today. Lasix 80 mg IV once today. Cautiously replace potassium. 20 mEq today. Avoid nephrotoxins. Continue to assess daily for need for renal replacement therapy. EEG pending.
--- NOTE | 2019-11-01 11:29 | PN ---
PROGRESS NOTE PULMONARY/CRITICAL CARE PROGRESS NOTE: DATE OF SERVICE: 11/01/2019 Critical care time is 33 minutes. This is a 74-year-old black female who had an [id number] cardiac arrest. She had a total of about 25 minutes of a resuscitative session. She had 15 minutes of that outside the hospital and 10 minutes while in the hospital. Hence, we were concerned about anoxic brain injury. In addition, Dr. Ponce in the emergency room here at [facility] thought maybe she was intubated within the esophagus and ended up re- intubating her when she got here to [facility]. Her initial blood gas showed a pH of only 6.93. Currently, she remains on the mechanical ventilator. She does have a history of multiple medical problems including depression, diabetes mellitus, hyperlipidemia, hypertension, mitral valve prolapse, chronic kidney disease, hypothyroidism, dementia, and gout. Current vent settings include the volume assist-control modality, tidal volume 350, rate 28, FiO2 pf 35% being dropped from 50%, PEEP of 5. Blood gases on 50% same settings include a pO2 of 190, pCO2 of 29, and pH of 7.45. The patient is on a bicarb drip with 3 amps of bicarb and D5W at 80 mL an hour, propofol at 10 mcg/minute. Tube feeds have not yet been started. The patient will have a daily interruption of sedation today. She was apparently seen by Neurology. EEG was ordered. Currently, she seems to be mostly unresponsive. She does occasionally trigger the ventilator. Her doll's eyes reflex is present but very slow. There is no gag reflex. She is not respond to verbal or painful stimuli. Her pupils are pinpoint and sluggishly or not reactive. No gag reflex. Current vital signs are reviewed. Temperature is 97.8, heart rate 75, respiratory rate 20, blood pressure 123/36, and her saturations are 100% on the 35% FiO2. Appears in no acute distress. Poorly responsive/nonresponsive as mentioned above. HEENT: Examination is grossly unremarkable. She has got an orally placed endotracheal tube and NG tube. NECK: Supple. Full range of motion. No adenopathy. Neck veins are flat. CARDIOVASCULAR: Examination reveals regular rhythm and rate. Heart rate mid 70s. S1, S2 normal. No murmur. LUNGS: Reveal diffuse coarse rhonchi. Breath sounds are diminished throughout. No wheezes or crackles. ABDOMEN: Soft. No bowel sounds. EXTREMITIES: Intact. No edema. SKIN: Without rash. NEUROLOGIC: Examination is as above. She has this strange sucking motion that she is doing on the endotracheal tube. She has no gag reflex. Pupils are pinpoint and nonreactive. She only very occasionally triggers the ventilator. No gag reflex as mentioned. Her doll's eyes reflexes either slowly present or not present. Does not respond to pain or verbal stimuli. LABS: Reviewed. White count 13.2, hemoglobin 9.8, hematocrit 30.2, platelet count 179,000, blood gases have been noted. Sodium 138, potassium 3.7, chloride 106, CO2 is 22, anion gap is 10, BUN and creatinine were 42 and 2.77, this is up from 36 and 2.50 yesterday. Her AST is 186, ALT 65, albumin 2.3, ionized calcium is 4.2. Microbiology including blood and sputum sampling is negative thus far. A chest x-ray from 10/31 reveals pulmonary vascular congestion with small to moderate right and small left pleural effusions. MEDICATIONS: Reviewed. Currently, she is on aspirin, Coreg, chlorhexidine, bicarb drip, insulin, DuoNeb, magnesium replacement, Narcan, Protonix, Zosyn, propofol. ASSESSMENT: 1. Syh-im-bwfmqhst cardiopulmonary arrest with prolonged resuscitation phase, lasting about 25 minutes, with return of spontaneous circulation. The patient may have had a prolonged period of time with esophageal intubation. The patient may have also suffered severe anoxic brain injury. 2. Cardiopulmonary arrest of unclear etiology. 3. History of depression. 4. Diabetes mellitus. 5. Hyperlipidemia. 6. Hypertension. 7. History of mitral valve prolapse. 8. History of acute on chronic kidney disease. 9. Hypothyroidism. 10.Dementia. 11.Gout. 12.Non-anion gap metabolic acidosis. 13.Hypocalcemia. PLAN: The patient will get calcium gluconate today. We will go ahead and drop the FiO2 from 50% to 35%. She remains on the current drips and so forth. She will be seen by Neurology. EEG will be done. CT scan of the brain was negative. She remains on antibiotics in the form of Zosyn. Additional recommendations and suggestions are forthcoming. Prognosis is guarded. Will talk to the daughter, Nichole later today. MMODL / IJN: [id number] / MTDD
[2019-11-01 11:40] LABS: Glucose,Whole Blood 164 mg/dL (75-99)
--- NOTE | 2019-11-01 12:35 | XR ---
EXAMINATION TYPE: XR chest 1V portable DATE OF EXAM: 11/01/2019 Comparison: Earlier today Clinical History: 74-year-old female NG tube placement for tube feeds Findings: Stable exam with right mid and lower lung opacity. The OG tube has been repositioned coursing below t he diaphragm and tip projecting at the left upper quadrant, satisfactory. Impression: Satisfactory advancement of the OG tube. Otherwise, unchanged exam from earlier today.
--- NOTE | 2019-11-01 13:59 | EEG ---
ELECTROENCEPHALOGRAM REPORT DATE OF SERVICE: 11/01/2019 HISTORY: This is an inpatient EEG performed on a 74-year-old female who is now status post cardiac arrest. The patient has had very minimal response to removal of sedation. This EEG is performed to rule out possible subclinical seizure activity and/or possible cerebral anoxic . TECHNICAL REPORT: This is an inpatient EEG performed on the [employer] EEG monitor with electrodes placed according to the International 10-20 system and a single EKG channel. Simultaneous video EEG monitoring was performed. This EEG was reviewed in both longitudinal bipolar, average referential and transverse montages. Photic stimulation was performed. Throughout this recording, the patient had been off propofol. Propofol was discontinued at 99:38:02. The background is severely suppressed, lasting between 10-15 seconds of severe suppression followed by burst lasting 4-6 seconds of high-amplitude generalized theta frequencies. Infrequently, an 8-9 Hz posterior dominant rhythm was noted intermixed with bursts of theta. This occurred notably at 09:40:36. This was not associated with any clinical movement or activity. Photic stimulation was performed at various flash frequencies and failed to elicit a consistent driving response. No clear awake sleep architecture was observed in the study. IMPRESSION: This is a severely abnormal EEG consistent with a burst suppression type phenomenon. The periods of suppression were prolonged up to 14 seconds. Occasionally, there was a brief 8-9 Hz alpha rhythm noted in the posterior head region intermixed with a burst of delta. CLINICAL CORRELATION: This EEG suggest generalized diffuse cerebral dysfunction. No electrographic seizures or clinical seizures were observed. Serial EEGs are recommended and/or clinically indicated, a more prolonged overnight study should be considered. Neuro imaging studies are also recommended to rule out possible anoxic brain injury. MMODL / IJN: [id number] /
[2019-11-01 14:03] LABS: Hemoglobin A1C 9.9 % (4.0-6.0)
--- NOTE | 2019-11-01 15:56 | P.PN ---
Subjective Progress Note Date: 11/01/19 Renita Robbins is a 74-year-old female, who presented to [facility] emergency room and was and responsive, CPR was in progress for approximately 15 minutes prior to arrival to emergency room, initially EMS were called due to shortness of breath, however while on her way to the hospital nicolasa ent became and responsive, she had a prolonged code both in the ambulance and in the emergency room, she was intubated and was admitted to intensive care unit, pulmonary and cardiology consultation were requested. Patient underwent an echocardiogram which revealed evidence of cardiomyopathy with left ventricular ejection fraction of 20-25% On 11/01/2019 patient was seen and examined in the ICU she is intubated and maintained on mechanical ventilation she is off IV pressors at this time she is being evaluated by cardiology and nephrology and pulmonary critical care she was also evaluated by neurology due to poor response after stopping sedation echocardiogram revealed evidence of cardiomyopathy with decreased ejection fraction to 2530 percent Objective - Vital Signs Vital signs: Vital Signs Temp 98.1 F 11/01/19 08:00 Pulse 81 11/01/19 10:00 Resp 20 11/01/19 10:00 BP 130/56 11/01/19 05:00 Pulse Ox 100 11/01/19 10:00 Intake & Output 10/31/19 11/01/19 11/01/19 18:59 06:59 18:59 Intake Total 3254.760 1075.482 95.513 Output Total 233 405 30 Balance 3021.760 670.482 65.513 Weight 47.536 kg 50.4 kg 50.4 kg Intake: IV 620 880 80 Sodium Chloride 0.9% 1, 620 880 80 000 ml @ 80 mls/hr IV . [id number] [facility] Rx#:[id number] Intake, IV Titration 2634.760 195.482 15.513 Amount Dextrose 5% in Water 1, 340 80 000 ml @ 80 mls/hr IV . [id number] [facility] with Sodium Bicarb (1 Meq/ml) 150 ml Rx#:[id number] Magnesium Sulfate-D5w Pmx 200 1 gm In Dextrose/Water 1 100ml.bag @ 100 mls/hr IVPB Q1H [facility] Rx#: [id number] Norepinephrine 32 mg In 10.242 Sodium Chloride 0.9% 218 ml @ 0.05 MCG/KG/MIN 1. 114 mls/hr IV .Q24H [facility] Rx#:[id number] Piperacillin-Tazobactam 3 100 .375 gm In Sodium Chloride 0.9% 100 ml @ 25 mls/hr IVPB Q8H [facility] Rx#: [id number] Propofol 1,000 mg In 84.518 15.482 15.513 Empty Bag 1 bag @ Titrate IV .Q0M [facility] Rx#: [id number] Sodium Chloride 0.9% 1, 2000 000 ml @ 999 mls/hr IV . Q1H1M [facility] Rx#:[id number] Output: Urine 203 405 30 Oral Regurgitation 30 Other: Voiding Method Indwelling Catheter Indwelling Catheter Indwelling Catheter ABP, PAP, CO, CI - Last Documented Arterial Blood Pressure 145/49 - Exam In general patient is intubated maintained on mechanical ventilation HEENT without any acute abnormality Neck is supple no JVD no goiter Chest exam reveals scattered rhonchi bilaterally no wheezing Cardiac exam reveals regular heart sounds no murmurs Abdomen is soft nontender no organomegaly Extremity exam reveals no edema - Labs CBC & Chem 7: 11/01/19 05:10 11/01/19 05:30 Labs: Abnormal Lab Results - Last 24 Hours (Table) 10/30/19 10/30/19 10/31/19 Range/Units 23:14 23:14 12:03 WBC (3.8-10.6) k/uL RBC (3.80-5.40) m/uL Hgb (11.4-16.0) gm/dL Hct (34.0-46.0) % Neutrophils # (1.3-7.7) k/uL ABG pCO2 (35-45) mmHg ABG pO2 (83-108) mmHg ABG HCO3 (21-25) mmol/L ABG O2 Saturation (94-97) % Chloride (98-107) mmol/L Carbon Dioxide (22-30) mmol/L BUN (7-17) mg/dL Creatinine (0.52-1.04) mg/dL Glucose (74-99) mg/dL POC Glucose (mg/dL) 286 H (75-99) mg/dL Calcium (8.4-10.2) mg/dL Ionized Calcium Janene (4.5-5.3) mg/dL Phosphorus (2.5-4.5) mg/dL Ferritin 1426.4 H (10.0-291.0) ng/mL AST (14-36) U/L ALT (4-34) U/L Total Protein (6.3-8.2) g/dL Albumin (3.5-5.0) g/dL Procalcitonin 0.14 H (0.02-0.09) ng/mL 10/31/19 10/31/19 10/31/19 Range/Units 18:07 18:25 19:07 WBC (3.8-10.6) k/uL RBC (3.80-5.40) m/uL Hgb (11.4-16.0) gm/dL Hct (34.0-46.0) % Neutrophils # (1.3-7.7) k/uL ABG pCO2 (35-45) mmHg ABG pO2 (83-108) mmHg ABG HCO3 (21-25) mmol/L ABG O2 Saturation (94-97) % Chloride 112 H (98-107) mmol/L Carbon Dioxide 15 L (22-30) mmol/L BUN 36 H (7-17) mg/dL Creatinine 2.50 H (0.52-1.04) mg/dL Glucose 228 H (74-99) mg/dL POC Glucose (mg/dL) 247 H (75-99) mg/dL Calcium 6.8 L (8.4-10.2) mg/dL Ionized Calcium Janene (4.5-5.3) mg/dL Phosphorus 5.5 H (2.5-4.5) mg/dL Ferritin (10.0-291.0) ng/mL AST (14-36) U/L ALT (4-34) U/L Total Protein (6.3-8.2) g/dL Albumin (3.5-5.0) g/dL Procalcitonin (0.02-0.09) ng/mL 10/31/19 11/01/19 11/01/19 Range/Units 23:54 05:10 05:14 WBC 13.2 H (3.8-10.6) k/uL RBC 3.46 L (3.80-5.40) m/uL Hgb 9.8 L (11.4-16.0) gm/dL Hct 30.2 L (34.0-46.0) % Neutrophils # 11.4 H (1.3-7.7) k/uL ABG pCO2 29 L (35-45) mmHg ABG pO2 190 H (83-108) mmHg ABG HCO3 20 L (21-25) mmol/L ABG O2 Saturation 98.9 H (94-97) % Chloride (98-107) mmol/L Carbon Dioxide (22-30) mmol/L BUN (7-17) mg/dL Creatinine (0.52-1.04) mg/dL Glucose (74-99) mg/dL POC Glucose (mg/dL) 182 H (75-99) mg/dL Calcium (8.4-10.2) mg/dL Ionized Calcium Janene (4.5-5.3) mg/dL Phosphorus (2.5-4.5) mg/dL Ferritin (10.0-291.0) ng/mL AST (14-36) U/L ALT (4-34) U/L Total Protein (6.3-8.2) g/dL Albumin (3.5-5.0) g/dL Procalcitonin (0.02-0.09) ng/mL 11/01/19 11/01/19 Range/Units 05:30 05:38 WBC (3.8-10.6) k/uL RBC (3.80-5.40) m/uL Hgb (11.4-16.0) gm/dL Hct (34.0-46.0) % Neutrophils # (1.3-7.7) k/uL ABG pCO2 (35-45) mmHg ABG pO2 (83-108) mmHg ABG HCO3 (21-25) mmol/L ABG O2 Saturation (94-97) % Chloride (98-107) mmol/L Carbon Dioxide (22-30) mmol/L BUN 42 H (7-17) mg/dL Creatinine 2.77 H (0.52-1.04) mg/dL Glucose 102 H (74-99) mg/dL POC Glucose (mg/dL) 113 H (75-99) mg/dL Calcium 7.1 L (8.4-10.2) mg/dL Ionized Calcium Janene 4.2 L (4.5-5.3) mg/dL Phosphorus 4.9 H (2.5-4.5) mg/dL Ferritin (10.0-291.0) ng/mL AST 186 H (14-36) U/L ALT 65 H (4-34) U/L Total Protein 5.2 L (6.3-8.2) g/dL Albumin 2.5 L (3.5-5.0) g/dL Procalcitonin (0.02-0.09) ng/mL Microbiology - Last 24 Hours (Table) 10/30/19 23:56 Blood Culture - Preliminary Blood No Growth after 24 hours 10/30/19 23:34 Gram Stain - Preliminary Sputum Sputum Culture - Preliminary Assessment and Plan Plan: 1. Cardiopulmonary arrest 2. Evidence of cardiomyopathy with decreased ejection fraction 20-25 percent, patient has a history of ICD placement 3. prolonged cardiac resuscitation with high possibility of aspiration patient was started on IV Zosyn 4. acute renal failure with elevated BUN and creatinine, with underlying chronic kidney disease stage III nephrology consultation was requested 5. metabolic acidosis 6. hypotension patient was started on vasopressors in intensive care unit 7. Underlying history of diabetes mellitus at this time patient is admitted to intensive care unit she is intubated sedated maintained on mechanical ventilation She is maintained on IV antibiotic pulmonary cardiology and nephrology consultations are following Prognosis is poor due to severity of illness was prolonged cardiopulmonary arrest and severe underlying cardiac disease Will follow closely
[2019-11-01 18:12] LABS: Glucose,Whole Blood 60 mg/dL (75-99)
[2019-11-01] MEDS ORDERED: DEXTROSE 50% SYRINGE 50 ML IVP ONE (18:15)
[2019-11-01] MEDS ORDERED: DEXTROSE 50% SYRINGE 50 ML IVP STA (18:16)
[2019-11-01 18:32] LABS: Potassium 3.3 mmol/L (3.5-5.1)
[2019-11-01 18:37] LABS: Glucose,Whole Blood 282 mg/dL (75-99)
[2019-11-01] MEDS: POTASSIUM CHLORIDE 20 MEQ in WATER FOR INJECTION 1 100ML.BAG IVPB SCH ×2 (20:09→21:56)
[2019-11-01 23:34] LABS: Glucose,Whole Blood 216 mg/dL (75-99)
[2019-11-02] MEDS: IPRATROPIUM-ALBUTEROL 3 ML NEB INHALATION SCH ×6 (03:04→23:07)
[2019-11-02 04:53] LABS: Basophils % (A) 0 %; Eosinophils % (A) 0 %; HCT 26.1 % (34.0-46.0); HGB 8.7 gm/dL (11.4-16.0); Lymphocytes # (A) 1.4 k/uL (1.0-4.8); Lymphocytes % (A) 11 %; MCH 28.9 pg (25.0-35.0); MCHC 33.2 g/dL (31.0-37.0); MCV 87.2 fL (80.0-100.0); Mean Platelet Volume 9.6; Monocytes # (A) 0.5 k/uL (0-1.0); Monocytes % (A) 4 %; Neutrophils # (A) 10.1 k/uL (1.3-7.7); Neutrophils % (A) 83 %; Platelet Count 176 k/uL (150-450); RBC 2.99 m/uL (3.80-5.40); RDW 13.5 % (11.5-15.5); WBC 12.2 k/uL (3.8-10.6)
[2019-11-02 05:03] LABS: Albumin 2.3 g/dL (3.5-5.0); Calcium 7.3 mg/dL (8.4-10.2); Phosphorus 5.7 mg/dL (2.5-4.5); Potassium 4.6 mmol/L (3.5-5.1); Total Bilirubin 0.3 mg/dL (0.2-1.3); Total Protein 4.9 g/dL (6.3-8.2)
[2019-11-02 05:08] LABS: ABG HCO3 20 mmol/L (21-25); ABG Oxygen Saturation 98.8 % (94-97); ABG PCO2 28 mmHg (35-45); ABG PH 7.46 (7.35-7.45); ABG PO2 149 mmHg (83-108); ABG TCO2 21 mmol/L (19-24); Allen Test Performed? Yes
--- NOTE | 2019-11-02 06:33 | XR ---
EXAMINATION TYPE: XR chest 1V portable DATE OF EXAM: 11/02/2019 CLINICAL HISTORY: Difficulty breathing progress study. TECHNIQUE: Single AP portable upright view of the chest is obtained. COMPARISON: Chest x-ray from one day earlier and older studies FINDINGS: Stable appearance of endotracheal and orogastric tubes. Persistent mild cardiomegaly with atherosclerotic aortic knob and single lead pacemaker/ICD. Worsening central vascular congestion and left basilar opacity. Persistent right basilar opacity. Upper lungs remain clear without pneumothorax . Slight underlying levoconvex scoliotic curvature or positioning centered upper thoracic spine redem onstrated IMPRESSION: Correlate for worsening CHF exacerbation and/or fluid overload status there is persistent cardiomegaly with now mild to moderate central vascular congestion and small to moderate bilateral p leural effusions with associated right greater than left bibasilar acute infiltrate and/or atelectasi s.
[2019-11-02 06:34] LABS: Glucose,Whole Blood 169 mg/dL (75-99)
[2019-11-02] MEDS: INSULIN ASPART (NovoLOG) 100 UNIT/ML VIAL SQ SCH ×3 (06:46→18:11)
--- NOTE | 2019-11-02 07:00 | P.PN ---
Subjective Progress Note Date: 11/02/19 Principal diagnosis: cardiopulmonary arrest I was asked to see this patient as a consult for further cardiac evaluation for cardiomyopathy as well as heart failure. When I arrived the room, the patient was intubated and she is on mechanical ventilation. The patient is a 74-year- old -[place] female patient with an extensive past medical history consistent off severe nonischemic cardiomyopathy and status post biVICD, hypertension, dyslipidemia, and chronic kidney disease. Apparently the patient was brought by ambulance to the emergency room unresponsive with ongoing CPR. No history is available at this point. The history was taken from the electronic medical records. When the patient was arrived she was under CPR with V. fib as well as asystole. Knowing formation available about the clinical scenario before the patient presented to the emergency room. The patient underwent a heart catheterization in 2014 and that showed normal coronaries. An echocardiogram was also performed in 2014 and that revealed cardiomyopathy with EF between 20-25% and because she was on maximize medical treatment with no improvement in the ejection fraction subsequently she underwent BiV ICD placement. The patient was seen today, November 01. She continues to be intubated on mechanical ventilation. Hemodynamically she remains stable. She remains in normal sinus mechanism. An EEG was performed yesterday and there is some concern about possible anoxic encephalopathy. She was started yesterday on Coreg 3.125 mg by mouth twice a day. The creatinine is worse today. She was given Lasix yesterday and that has been managed by the nephrology service. The echo showed severe cardiomyopathy with EF between 20-25% with global hypokinesia. Overall the prognosis is very poor. Please note that the chest x- ray was reviewed as well and showed worsening heart failure. Objective - Vital Signs Vital signs: Vital Signs Temp 97.0 F L 11/02/19 04:00 Pulse 69 11/02/19 04:00 Resp 20 11/02/19 04:00 BP 128/58 11/01/19 21:00 Pulse Ox 100 11/02/19 04:00 Intake & Output 11/01/19 11/01/19 11/02/19 06:59 18:59 06:59 Intake Total 1075.482 562.901 479.173 Output Total 405 405 385 Balance 670.482 157.901 94.173 Weight 50.4 kg 50.4 kg 50 kg Intake: IV 880 350 200 Dextrose amp 50 Sodium Chloride 0.9% 1, 880 80 000 ml @ 80 mls/hr IV . [id number] [facility] Rx#:[id number] Sodium Chloride 0.9% 500 220 200 ml 500 ml @ 20 mls/hr IV .Q24H [facility] Rx#:[id number] Intake, IV Titration 195.482 132.901 9.173 Amount Dextrose 5% in Water 1, 80 000 ml @ 80 mls/hr IV . [id number] [facility] with Sodium Bicarb (1 Meq/ml) 150 ml Rx#:[id number] Piperacillin-Tazobactam 3 100 .375 gm In Sodium Chloride 0.9% 100 ml @ 25 mls/hr IVPB Q12H [facility] Rx# :[id number] Piperacillin-Tazobactam 3 100 .375 gm In Sodium Chloride 0.9% 100 ml @ 25 mls/hr IVPB Q8H [facility] Rx#: [id number] Propofol 1,000 mg In 15.482 32.901 9.173 Empty Bag 1 bag @ Titrate IV .Q0M [facility] Rx#: [id number] Tube Feeding 50 180 Other 30 90 Output: Urine 405 405 385 Other: Voiding Method Indwelling Catheter Indwelling Catheter Indwelling Catheter ABP, PAP, CO, CI - Last Documented Arterial Blood Pressure 111/43 - Constitutional General appearance: Present: no acute distress - Respiratory Respiratory: bilateral: diminished - Cardiovascular Rhythm: regular Heart sounds: normal: S1, S2 - Labs CBC & Chem 7: 11/02/19 04:30 11/02/19 04:30 Labs: Abnormal Lab Results - Last 24 Hours (Table) 11/01/19 11/01/19 11/01/19 Range/Units 05:10 11:38 18:09 WBC (3.8-10.6) k/uL RBC (3.80-5.40) m/uL Hgb (11.4-16.0) gm/dL Hct (34.0-46.0) % Neutrophils # (1.3-7.7) k/uL ABG pH (7.35-7.45) ABG pCO2 (35-45) mmHg ABG pO2 (83-108) mmHg ABG HCO3 (21-25) mmol/L ABG O2 Saturation (94-97) % Sodium (137-145) mmol/L Potassium (3.5-5.1) mmol/L Carbon Dioxide (22-30) mmol/L BUN (7-17) mg/dL Creatinine (0.52-1.04) mg/dL Glucose (74-99) mg/dL POC Glucose (mg/dL) 164 H 60 L (75-99) mg/dL Hemoglobin A1c 9.9 H (4.0-6.0) % Calcium (8.4-10.2) mg/dL Phosphorus (2.5-4.5) mg/dL AST (14-36) U/L ALT (4-34) U/L Total Protein (6.3-8.2) g/dL Albumin (3.5-5.0) g/dL 11/01/19 11/01/19 11/01/19 Range/Units 18:10 18:35 23:31 WBC (3.8-10.6) k/uL RBC (3.80-5.40) m/uL Hgb (11.4-16.0) gm/dL Hct (34.0-46.0) % Neutrophils # (1.3-7.7) k/uL ABG pH (7.35-7.45) ABG pCO2 (35-45) mmHg ABG pO2 (83-108) mmHg ABG HCO3 (21-25) mmol/L ABG O2 Saturation (94-97) % Sodium (137-145) mmol/L Potassium 3.3 L (3.5-5.1) mmol/L Carbon Dioxide (22-30) mmol/L BUN (7-17) mg/dL Creatinine (0.52-1.04) mg/dL Glucose (74-99) mg/dL POC Glucose (mg/dL) 282 H 216 H (75-99) mg/dL Hemoglobin A1c (4.0-6.0) % Calcium (8.4-10.2) mg/dL Phosphorus (2.5-4.5) mg/dL AST (14-36) U/L ALT (4-34) U/L Total Protein (6.3-8.2) g/dL Albumin (3.5-5.0) g/dL 11/02/19 11/02/19 11/02/19 Range/Units 04:30 04:30 05:05 WBC 12.2 H (3.8-10.6) k/uL RBC 2.99 L (3.80-5.40) m/uL Hgb 8.7 L (11.4-16.0) gm/dL Hct 26.1 L (34.0-46.0) % Neutrophils # 10.1 H (1.3-7.7) k/uL ABG pH 7.46 H (7.35-7.45) ABG pCO2 28 L (35-45) mmHg ABG pO2 149 H (83-108) mmHg ABG HCO3 20 L (21-25) mmol/L ABG O2 Saturation 98.8 H (94-97) % Sodium 136 L (137-145) mmol/L Potassium (3.5-5.1) mmol/L Carbon Dioxide 21 L (22-30) mmol/L BUN 51 H (7-17) mg/dL Creatinine 3.45 H (0.52-1.04) mg/dL Glucose 140 H (74-99) mg/dL POC Glucose (mg/dL) (75-99) mg/dL Hemoglobin A1c (4.0-6.0) % Calcium 7.3 L (8.4-10.2) mg/dL Phosphorus 5.7 H (2.5-4.5) mg/dL AST 153 H (14-36) U/L ALT 44 H (4-34) U/L Total Protein 4.9 L (6.3-8.2) g/dL Albumin 2.3 L (3.5-5.0) g/dL 11/02/19 Range/Units 06:32 WBC (3.8-10.6) k/uL RBC (3.80-5.40) m/uL Hgb (11.4-16.0) gm/dL Hct (34.0-46.0) % Neutrophils # (1.3-7.7) k/uL ABG pH (7.35-7.45) ABG pCO2 (35-45) mmHg ABG pO2 (83-108) mmHg ABG HCO3 (21-25) mmol/L ABG O2 Saturation (94-97) % Sodium (137-145) mmol/L Potassium (3.5-5.1) mmol/L Carbon Dioxide (22-30) mmol/L BUN (7-17) mg/dL Creatinine (0.52-1.04) mg/dL Glucose (74-99) mg/dL POC Glucose (mg/dL) 169 H (75-99) mg/dL Hemoglobin A1c (4.0-6.0) % Calcium (8.4-10.2) mg/dL Phosphorus (2.5-4.5) mg/dL AST (14-36) U/L ALT (4-34) U/L Total Protein (6.3-8.2) g/dL Albumin (3.5-5.0) g/dL Microbiology - Last 24 Hours (Table) 10/30/19 23:56 Blood Culture - Preliminary Blood No Growth after 48 hours 10/30/19 23:34 Gram Stain - Preliminary Sputum Sputum Culture - Preliminary Assessment and Plan Assessment: Assessment #1 cardiopulmonary arrest of unknown etiology at this point. #2 rule out cardiac arrhythmia in the setting of severe cardiomyopathy #3 known severe cardiomyopathy and status post ICD #4 possible underlying pneumonia #5 congestive heart failure exacerbation secondary to systolic dysfunction #6 chronic kidney disease #7 diabetes #8 multiple comorbid conditions Plan #1 continue the current medical regimen #2 Lasix to be managed by the nephrology service #3 overall poor prognosis
[2019-11-02] MEDS: CARVEDILOL 3.125 MG TAB PO SCH ×2 (07:13→18:11)
[2019-11-02] MEDS: CHLORHEXIDINE GLUCONATE 15 ML CUP MUCOUS MEM SCH ×2 (08:20→20:39)
[2019-11-02] MEDS: ASPIRIN 81 MG PO SCH (08:20)
[2019-11-02] MEDS: HEPARIN SODIUM,PORCINE 5,000 UNIT/ML 1 ML VIAL SQ SCH ×2 (08:20→20:39)
[2019-11-02] MEDS: PANTOPRAZOLE 40 MG/10 ML VIAL IVP SCH (08:20)
[2019-11-02 11:44] LABS: Glucose,Whole Blood 163 mg/dL (75-99)
[2019-11-02] MEDS: PIPERACILLIN-TAZOBACTAM 3.375 GM in SODIUM CHLORIDE 0.9% 100 ML IVPB SCH ×3 (11:46)
[2019-11-02] MEDS: SODIUM CHLORIDE 0.9% 500 ML 500 ML IV SCH (11:47)
--- NOTE | 2019-11-02 12:37 | PN ---
PROGRESS NOTE The patient is seen for followup for acute kidney injury on top of chronic kidney disease, mainly ATN, currently nonoliguric. Urine output has been about 30-40 mL an hours. The patient had an EEG done which showed diffuse cerebral abnormality. The patient has been off sedation and is not waking up. She is currently a DNR status. No IV fluids currently. On examination today patient is on the vent. She is unresponsive. Blood pressure is 125/49, heart rate 71 per minute, she is afebrile. Examination of the heart S1, S2. Examination of the lungs: Decreased breath sounds at bases. Bilateral breath sounds are heard. Abdomen is soft, nontender. Examination of lower extremities shows edema 1+ bilaterally. [employer] exam cannot be performed. LAB: Show sodium 136, potassium 4.6, chloride 106, CO2 is 21, BUN 51, creatinine 3.45, phosphorus 5.7, calcium 7.3. Hemoglobin was 8.7 g/dL. ASSESSMENT: 1. Acute kidney injury, acute tubular necrosis, currently nonoliguric and worsening. Urine output is maintained. The patient is not a candidate for renal replacement therapy given the diffuse abnormality noted on the EEG and high possibility of anoxic encephalopathy. 2. Status post cardiopulmonary arrest. 3. Acute hypoxic respiratory failure. 4. Chronic kidney disease stage III. Baseline creatinine around 2 secondary to nephrosclerosis. 5. Metabolic acidosis associated with acute kidney injury, lactic acidosis, currently improved. 6. Chronic kidney disease mineral bone disorder. 7. Congestive heart failure on initial admission. Currently chest x-ray continue she continues to show pulmonary vascular congestion. PLAN: Continue off IV fluids for now. The patient is not an ideal candidate for renal replacement therapy. If her renal function continues to worsen and she remains volume overloaded, ideally, she would need dialysis. However, given the underlying significant brain dysfunction on EEG and high possibility of anoxic encephalopathy, the patient may not be an ideal candidate for dialysis. MMODL / IJN: [id number] /
--- NOTE | 2019-11-02 14:12 | P.PN ---
Subjective Progress Note Date: 11/02/19 Renita Robbins is a 74-year-old female, who presented to [facility] emergency room and was and responsive, CPR was in progress for approximately 15 minutes prior to arrival to emergency room, initially EMS were called due to shortness of breath, however while on her way to the hospital nicolasa ent became and responsive, she had a prolonged code both in the ambulance and in the emergency room, she was intubated and was admitted to intensive care unit, pulmonary and cardiology consultation were requested. Patient underwent an echocardiogram which revealed evidence of cardiomyopathy with left ventricular ejection fraction of 20-25% On 11/01/2019 patient was seen and examined in the ICU she is intubated and maintained on mechanical ventilation she is off IV pressors at this time she is being evaluated by cardiology and nephrology and pulmonary critical care she was also evaluated by neurology due to poor response after stopping sedation echocardiogram revealed evidence of cardiomyopathy with decreased ejection fraction to 2530 percent On 11/02/2019 patient was seen and examined in the ICU she is intubated sedated maintained on mechanical ventilation, she is hemodynamically stable, her kidney function has worsened with increased BUN to 51 and creatinine to 3.45, nephrology are following, chest x-ray reveals worsening congestive heart failure, prognosis is poor, will follow closely, pulmonary critical care, cardiology and nephrology are following Objective - Vital Signs Vital signs: Vital Signs Temp 97.6 F 11/02/19 12:00 Pulse 71 11/02/19 12:00 Resp 20 11/02/19 12:00 BP 105/51 11/02/19 09:00 Pulse Ox 99 11/02/19 12:00 Intake & Output 11/01/19 11/02/19 11/02/19 18:59 06:59 18:59 Intake Total 562.901 559.173 300.118 Output Total 405 440 170 Balance 157.901 119.173 130.118 Weight 50.4 kg 50 kg Intake: IV 350 240 120 Dextrose amp 50 Sodium Chloride 0.9% 1, 80 000 ml @ 80 mls/hr IV . [id number] [facility] Rx#:[id number] Sodium Chloride 0.9% 500 220 240 120 ml 500 ml @ 20 mls/hr IV .Q24H [facility] Rx#:[id number] Intake, IV Titration 132.901 9.173 40.118 Amount Piperacillin-Tazobactam 3 100 .375 gm In Sodium Chloride 0.9% 100 ml @ 25 mls/hr IVPB Q12H [facility] Rx# :[id number] Propofol 1,000 mg In 32.901 9.173 40.118 Empty Bag 1 bag @ Titrate IV .Q0M [facility] Rx#: [id number] Tube Feeding 50 220 140 Other 30 90 Output: Urine 405 440 170 Other: Voiding Method Indwelling Catheter Indwelling Catheter Indwelling Catheter ABP, PAP, CO, CI - Last Documented Arterial Blood Pressure 125/49 - Exam In general patient is intubated maintained on mechanical ventilation HEENT without any acute abnormality Neck is supple no JVD no goiter Chest exam reveals scattered rhonchi bilaterally no wheezing Cardiac exam reveals regular heart sounds no murmurs Abdomen is soft nontender no organomegaly Extremity exam reveals no edema - Labs CBC & Chem 7: 11/02/19 04:30 11/02/19 04:30 Labs: Abnormal Lab Results - Last 24 Hours (Table) 11/01/19 11/01/19 11/01/19 Range/Units 18:09 18:10 18:35 WBC (3.8-10.6) k/uL RBC (3.80-5.40) m/uL Hgb (11.4-16.0) gm/dL Hct (34.0-46.0) % Neutrophils # (1.3-7.7) k/uL ABG pH (7.35-7.45) ABG pCO2 (35-45) mmHg ABG pO2 (83-108) mmHg ABG HCO3 (21-25) mmol/L ABG O2 Saturation (94-97) % Sodium (137-145) mmol/L Potassium 3.3 L (3.5-5.1) mmol/L Carbon Dioxide (22-30) mmol/L BUN (7-17) mg/dL Creatinine (0.52-1.04) mg/dL Glucose (74-99) mg/dL POC Glucose (mg/dL) 60 L 282 H (75-99) mg/dL Calcium (8.4-10.2) mg/dL Phosphorus (2.5-4.5) mg/dL AST (14-36) U/L ALT (4-34) U/L Total Protein (6.3-8.2) g/dL Albumin (3.5-5.0) g/dL 11/01/19 11/02/19 11/02/19 Range/Units 23:31 04:30 04:30 WBC 12.2 H (3.8-10.6) k/uL RBC 2.99 L (3.80-5.40) m/uL Hgb 8.7 L (11.4-16.0) gm/dL Hct 26.1 L (34.0-46.0) % Neutrophils # 10.1 H (1.3-7.7) k/uL ABG pH (7.35-7.45) ABG pCO2 (35-45) mmHg ABG pO2 (83-108) mmHg ABG HCO3 (21-25) mmol/L ABG O2 Saturation (94-97) % Sodium 136 L (137-145) mmol/L Potassium (3.5-5.1) mmol/L Carbon Dioxide 21 L (22-30) mmol/L BUN 51 H (7-17) mg/dL Creatinine 3.45 H (0.52-1.04) mg/dL Glucose 140 H (74-99) mg/dL POC Glucose (mg/dL) 216 H (75-99) mg/dL Calcium 7.3 L (8.4-10.2) mg/dL Phosphorus 5.7 H (2.5-4.5) mg/dL AST 153 H (14-36) U/L ALT 44 H (4-34) U/L Total Protein 4.9 L (6.3-8.2) g/dL Albumin 2.3 L (3.5-5.0) g/dL 11/02/19 11/02/19 11/02/19 Range/Units 05:05 06:32 11:42 WBC (3.8-10.6) k/uL RBC (3.80-5.40) m/uL Hgb (11.4-16.0) gm/dL Hct (34.0-46.0) % Neutrophils # (1.3-7.7) k/uL ABG pH 7.46 H (7.35-7.45) ABG pCO2 28 L (35-45) mmHg ABG pO2 149 H (83-108) mmHg ABG HCO3 20 L (21-25) mmol/L ABG O2 Saturation 98.8 H (94-97) % Sodium (137-145) mmol/L Potassium (3.5-5.1) mmol/L Carbon Dioxide (22-30) mmol/L BUN (7-17) mg/dL Creatinine (0.52-1.04) mg/dL Glucose (74-99) mg/dL POC Glucose (mg/dL) 169 H 163 H (75-99) mg/dL Calcium (8.4-10.2) mg/dL Phosphorus (2.5-4.5) mg/dL AST (14-36) U/L ALT (4-34) U/L Total Protein (6.3-8.2) g/dL Albumin (3.5-5.0) g/dL Microbiology - Last 24 Hours (Table) 10/30/19 23:34 Gram Stain - Final Sputum Sputum Culture - Final 10/30/19 23:56 Blood Culture - Preliminary Blood No Growth after 48 hours Assessment and Plan Plan: 1. Cardiopulmonary arrest 2. Evidence of cardiomyopathy with decreased ejection fraction 20-25 percent, patient has a history of ICD placement 3. prolonged cardiac resuscitation with high possibility of aspiration patient was started on IV Zosyn 4. acute renal failure with elevated BUN and creatinine, with underlying chronic kidney disease stage III nephrology consultation was requested 5. metabolic acidosis 6. hypotension patient was started on vasopressors in intensive care unit 7. Underlying history of diabetes mellitus at this time patient is admitted to intensive care unit she is intubated sedated maintained on mechanical ventilation She is maintained on IV antibiotic pulmonary cardiology and nephrology consultations are following Prognosis is poor due to severity of illness was prolonged cardiopulmonary arrest and severe underlying cardiac disease Will follow closely
--- NOTE | 2019-11-02 14:49 | PN ---
PROGRESS NOTE PULMONARY/CRITICAL CARE PROGRESS NOTE DATE OF SERVICE: November 01 Critical care time 32 minutes. HISTORY: This is a 74-year-old Black female who had an ryj-li-phjmugbp cardiac arrest. She required the resuscitation for about 15 minutes outside the hospital, another 10 minutes within the hospital. Obviously, we are concerned very much about anoxic brain injury. In addition, when she presented to the emergency room, Dr. Ponce thought maybe she had esophageal intubation, she was extubated and reintubated by him. Her initial blood gas showed a pH of only 6.93. Currently, she remains on the mechanical ventilator. Her ventilator settings include the volume assist-control modality, rate of 20, tidal volume 350, FiO2 35% to be dropped to 25%, and PEEP of 5. Blood gases showed a pO2 of 149, a pCO2 of 28, and pH is 7.46. She is getting saline at 20 mL an hour, propofol is currently off and vital high-protein at 30 with a goal of 35. The FiO2 as mentioned was dropped from 35% to 25%. We keep her off the propofol for now. We will see whether not she wakes up and whether or not she improves neurologically. I did have a conversation with the daughter, Nichole. The patient is a DO NOT RESUSCITATE. PHYSICAL EXAMINATION: VITAL SIGNS: The current vital signs good temperature 97.6 heart rate 71, respiratory rate 20, blood pressure 125/49 and saturations are 99% on 25% FiO2 and PEEP of 5. GENERAL: Currently appears in no acute distress. Propofol was just recently turned off. She is still sedated. HEENT: Examination is unremarkable. There is an orally placed endotracheal tube and NG tube. NECK is supple. Full range of motion. No adenopathy. Neck veins are flat. CARDIOVASCULAR: Examination reveals regular rhythm and rate. Heart rate 71. S1, S2 normal. No murmur. LUNGS: Reveal coarse bilateral rhonchi. Breath sounds are equal. ABDOMEN: Soft. Bowel sounds are noted. EXTREMITIES are intact. There is no significant edema. SKIN: Without rash. NEUROLOGIC: Examination reveals the patient to have very little response to any verbal stimuli. She does trigger the ventilator. She is still currently though on propofol. LABS: Reviewed. White count 12.2, hemoglobin 8.7, hematocrit 26.1, platelet count normal. Blood gases have been noted. Sodium 136, potassium 4.6, chloride 106, CO2 21, anion gap is 9, BUN and creatinine were 51 and 3.45. Calcium 7.3, phosphorus 5.7, alkaline phosphatase is 82, albumin 2.3. Microbiology thus far is negative including blood and sputum. The patient had a chest x-ray on November 01, which showed changes of congestive heart failure with fluid overload. There are also bibasilar opacities. No evidence of any pneumothorax. The EEG from yesterday shows generalized diffuse cerebral dysfunction. MEDICATIONS: Reviewed. Currently, the patient is on aspirin, carvedilol, chlorhexidine, heparin, insulin, DuoNeb, magnesium, Narcan, Protonix, Zosyn, and propofol. ASSESSMENT: 1. Nmo-ve-uyebrezo cardiopulmonary arrest with prolonged resuscitative phase/lasting about 25 minutes or so, with eventual return of spontaneous circulation. In addition, the patient may have had a prolonged period of time with esophageal intubation prior to being reintubated in the emergency department by the ER physician. I suspect significant/severe anoxic brain injury. 2. Cardiopulmonary arrest of unclear etiology, status post cardiopulmonary resuscitation with eventual return of spontaneous circulation. 3. History of depression. 4. Diabetes mellitus. 5. Hyperlipidemia. 6. Hypertension. 7. History of mitral valve prolapse. 8. History of acute on chronic kidney disease. 9. Hypothyroidism. 10.Dementia. 11.Gout. 12.Non-anion gap metabolic acidosis. 13.Hypocalcemia. PLAN: Currently, the patient is about the same. We will take her off her sedation. We will see how she responds. Previously, when she comes off sedation, she becomes very tachypneic and tachycardic. She becomes hypertensive and dyssynchronous with the ventilator. The results of the EEG are reviewed. I did speak to Dr. Grover about the patient. No additional recommendations are made. She continues on Zosyn. Cultures are negative. The FiO2 was dropped from 35-25 percent. Prognosis is very poor. She is a DNR. I have explained to her daughter, Nichole, who does understand. MMODL / IJN: [id number] / MTDD
[2019-11-02] MEDS ORDERED: FUROSEMIDE 10 MG/ML 10 ML VIAL IV STA (14:52)
[2019-11-02 18:09] LABS: Glucose,Whole Blood 212 mg/dL (75-99)
[2019-11-02 23:58] LABS: Glucose,Whole Blood 211 mg/dL (75-99)
[2019-11-03] MEDS: INSULIN ASPART (NovoLOG) 100 UNIT/ML VIAL SQ SCH ×3 (00:04→10:52)
[2019-11-03] MEDS: PIPERACILLIN-TAZOBACTAM 3.375 GM in SODIUM CHLORIDE 0.9% 100 ML IVPB SCH ×2 (00:04→10:51)
[2019-11-03 00:40] VITALS: BP 145/72
[2019-11-03] MEDS: IPRATROPIUM-ALBUTEROL 3 ML NEB INHALATION SCH ×3 (02:47→10:41)
[2019-11-03 05:05] LABS: ABG Base Excess -4.7 mmol/L; ABG HCO3 20 mmol/L (21-25); ABG Oxygen Saturation 96.4 % (94-97); ABG PCO2 29 mmHg (35-45); ABG PH 7.44 (7.35-7.45); ABG PO2 87 mmHg (83-108); ABG TCO2 20 mmol/L (19-24); Allen Test Performed? Yes
[2019-11-03 05:18] LABS: Basophils % (A) 0 %; Eosinophils # (A) 0.1 k/uL (0-0.7); Eosinophils % (A) 1 %; HCT 28.8 % (34.0-46.0); HGB 9.5 gm/dL (11.4-16.0); Lymphocytes # (A) 1.6 k/uL (1.0-4.8); Lymphocytes % (A) 11 %; MCH 29.4 pg (25.0-35.0); MCHC 33.1 g/dL (31.0-37.0); MCV 88.8 fL (80.0-100.0); Mean Platelet Volume 9.4; Monocytes # (A) 0.5 k/uL (0-1.0); Monocytes % (A) 3 %; Neutrophils # (A) 12.7 k/uL (1.3-7.7); Neutrophils % (A) 84 %; Platelet Count 203 k/uL (150-450); RBC 3.24 m/uL (3.80-5.40); RDW 13.7 % (11.5-15.5); WBC 15.1 k/uL (3.8-10.6)
[2019-11-03 05:35] LABS: Albumin 2.7 g/dL (3.5-5.0); Calcium 7.9 mg/dL (8.4-10.2); Phosphorus 5.8 mg/dL (2.5-4.5); Potassium 4.2 mmol/L (3.5-5.1); Total Bilirubin 0.3 mg/dL (0.2-1.3); Total Protein 5.7 g/dL (6.3-8.2)
[2019-11-03 06:03] LABS: Glucose,Whole Blood 127 mg/dL (75-99)
--- NOTE | 2019-11-03 06:54 | P.PN ---
Subjective Progress Note Date: 11/03/19 Principal diagnosis: cardiopulmonary arrest I was asked to see this patient as a consult for further cardiac evaluation for cardiomyopathy as well as heart failure. When I arrived the room, the patient was intubated and she is on mechanical ventilation. The patient is a 74-year- old -[place] female patient with an extensive past medical history consistent off severe nonischemic cardiomyopathy and status post biVICD, hypertension, dyslipidemia, and chronic kidney disease. Apparently the patient was brought by ambulance to the emergency room unresponsive with ongoing CPR. No history is available at this point. The history was taken from the electronic medical records. When the patient was arrived she was under CPR with V. fib as well as asystole. Knowing formation available about the clinical scenario before the patient presented to the emergency room. The patient underwent a heart catheterization in 2014 and that showed normal coronaries. An echocardiogram was also performed in 2014 and that revealed cardiomyopathy with EF between 20-25% and because she was on maximize medical treatment with no improvement in the ejection fraction subsequently she underwent BiV ICD placement. The patient was seen today, November 02. She continues to be intubated on mechanical ventilation. There is significant concern about anoxic encephalopathy. Neurology is on the case. Yesterday she was started back on beta ernesto with Coreg 3.125 mg by mouth twice a day. The Lasix has been managed by the nephrology service. The echo showed severe LV dysfunction. Overall the prognosis is very poor. We are awaiting for the AICD interrogation to be done tomorrow. Objective - Vital Signs Vital signs: Vital Signs Temp 97.5 F L 11/03/19 04:00 Pulse 80 11/03/19 05:00 Resp 20 11/03/19 05:00 BP 145/72 11/03/19 01:00 Pulse Ox 97 11/03/19 05:00 Intake & Output 11/02/19 11/02/19 11/03/19 06:59 18:59 06:59 Intake Total 559.173 605.118 745 Output Total 440 420 470 Balance 119.173 185.118 275 Weight 50 kg 50.7 kg Intake: IV 240 260 180 Sodium Chloride 0.9% 500 240 260 180 ml 500 ml @ 20 mls/hr IV .Q24H [facility] Rx#:[id number] Intake, IV Titration 9.173 140.118 100 Amount Piperacillin-Tazobactam 3 100 100 .375 gm In Sodium Chloride 0.9% 100 ml @ 25 mls/hr IVPB Q12H [facility] Rx# :[id number] Propofol 1,000 mg In 9.173 40.118 Empty Bag 1 bag @ Titrate IV .Q0M [facility] Rx#: [id number] Tube Feeding 220 205 385 Other 90 80 Output: Urine 440 420 470 Other: Voiding Method Indwelling Catheter Indwelling Catheter Indwelling Catheter # Bowel Movements 1 ABP, PAP, CO, CI - Last Documented Arterial Blood Pressure 148/52 - Constitutional General appearance: Present: no acute distress - Respiratory Respiratory: bilateral: diminished - Cardiovascular Rhythm: regular Heart sounds: normal: S1, S2 - Labs CBC & Chem 7: 11/03/19 04:45 11/03/19 04:45 Labs: Abnormal Lab Results - Last 24 Hours (Table) 11/02/19 11/02/19 11/02/19 Range/Units 11:42 18:07 23:57 WBC (3.8-10.6) k/uL RBC (3.80-5.40) m/uL Hgb (11.4-16.0) gm/dL Hct (34.0-46.0) % Neutrophils # (1.3-7.7) k/uL ABG pCO2 (35-45) mmHg ABG HCO3 (21-25) mmol/L Carbon Dioxide (22-30) mmol/L BUN (7-17) mg/dL Creatinine (0.52-1.04) mg/dL Glucose (74-99) mg/dL POC Glucose (mg/dL) 163 H 212 H 211 H (75-99) mg/dL Calcium (8.4-10.2) mg/dL Phosphorus (2.5-4.5) mg/dL AST (14-36) U/L ALT (4-34) U/L Total Protein (6.3-8.2) g/dL Albumin (3.5-5.0) g/dL 11/03/19 11/03/19 11/03/19 Range/Units 04:45 04:45 05:02 WBC 15.1 H (3.8-10.6) k/uL RBC 3.24 L (3.80-5.40) m/uL Hgb 9.5 L (11.4-16.0) gm/dL Hct 28.8 L (34.0-46.0) % Neutrophils # 12.7 H (1.3-7.7) k/uL ABG pCO2 29 L (35-45) mmHg ABG HCO3 20 L (21-25) mmol/L Carbon Dioxide 21 L (22-30) mmol/L BUN 65 H (7-17) mg/dL Creatinine 3.97 H (0.52-1.04) mg/dL Glucose 130 H (74-99) mg/dL POC Glucose (mg/dL) (75-99) mg/dL Calcium 7.9 L (8.4-10.2) mg/dL Phosphorus 5.8 H (2.5-4.5) mg/dL AST 132 H (14-36) U/L ALT 40 H (4-34) U/L Total Protein 5.7 L (6.3-8.2) g/dL Albumin 2.7 L (3.5-5.0) g/dL 11/03/19 Range/Units 06:01 WBC (3.8-10.6) k/uL RBC (3.80-5.40) m/uL Hgb (11.4-16.0) gm/dL Hct (34.0-46.0) % Neutrophils # (1.3-7.7) k/uL ABG pCO2 (35-45) mmHg ABG HCO3 (21-25) mmol/L Carbon Dioxide (22-30) mmol/L BUN (7-17) mg/dL Creatinine (0.52-1.04) mg/dL Glucose (74-99) mg/dL POC Glucose (mg/dL) 127 H (75-99) mg/dL Calcium (8.4-10.2) mg/dL Phosphorus (2.5-4.5) mg/dL AST (14-36) U/L ALT (4-34) U/L Total Protein (6.3-8.2) g/dL Albumin (3.5-5.0) g/dL Microbiology - Last 24 Hours (Table) 10/30/19 23:56 Blood Culture - Preliminary Blood No Growth after 72 hours 10/30/19 23:34 Gram Stain - Final Sputum Sputum Culture - Final Assessment and Plan Assessment: Assessment #1 cardiopulmonary arrest of unknown etiology at this point. #2 rule out cardiac arrhythmia in the setting of severe cardiomyopathy #3 known severe cardiomyopathy and status post ICD #4 possible underlying pneumonia #5 congestive heart failure exacerbation secondary to systolic dysfunction #6 chronic kidney disease #7 diabetes #8 multiple comorbid conditions Plan #1 continue the current medical regimen including coronary #2 Lasix to be managed by the nephrology service #3 overall poor prognosis
[2019-11-03] MEDS: CARVEDILOL 3.125 MG TAB PO SCH (06:56)
--- NOTE | 2019-11-03 07:22 | XR ---
EXAMINATION TYPE: XR chest 1V portable DATE OF EXAM: 11/03/2019 COMPARISON: 11/02/2019 HISTORY: Ventilatory dependent respiratory failure. TECHNIQUE: Single frontal view of the chest is obtained. FINDINGS: Layering bilateral pleural effusions are similar, at least small to moderate bilaterally. Enteric tube and endotracheal tube are similar in placement to the prior. Single lead left-sided card iac device is stable size of the cardiomediastinal silhouette. Diffuse osseous demineralization. Cent ral vascular congestion is unchanged. IMPRESSION: Small to moderate layering bilateral pleural effusions are unchanged from the prior with associated bibasilar airspace disease and central pulmonary vascular congestion. Stable fluid overl oad.
[2019-11-03] MEDS: CHLORHEXIDINE GLUCONATE 15 ML CUP MUCOUS MEM SCH (08:01)
[2019-11-03] MEDS: PANTOPRAZOLE 40 MG/10 ML VIAL IVP SCH (08:01)
[2019-11-03] MEDS: HEPARIN SODIUM,PORCINE 5,000 UNIT/ML 1 ML VIAL SQ SCH (08:01)
[2019-11-03] MEDS: ASPIRIN 81 MG PO SCH (08:01)
[2019-11-03 08:11] VITALS: TEMP 97.8
--- NOTE | 2019-11-03 11:13 | P.PN ---
Subjective Progress Note Date: 11/03/19 Renita Robbins is a 74-year-old female, who presented to [facility] emergency room and was and responsive, CPR was in progress for approximately 15 minutes prior to arrival to emergency room, initially EMS were called due to shortness of breath, however while on her way to the hospital nicolasa ent became and responsive, she had a prolonged code both in the ambulance and in the emergency room, she was intubated and was admitted to intensive care unit, pulmonary and cardiology consultation were requested. Patient underwent an echocardiogram which revealed evidence of cardiomyopathy with left ventricular ejection fraction of 20-25% On 11/01/2019 patient was seen and examined in the ICU she is intubated and maintained on mechanical ventilation she is off IV pressors at this time she is being evaluated by cardiology and nephrology and pulmonary critical care she was also evaluated by neurology due to poor response after stopping sedation echocardiogram revealed evidence of cardiomyopathy with decreased ejection fraction to 2530 percent On 11/02/2019 patient was seen and examined in the ICU she is intubated sedated maintained on mechanical ventilation, she is hemodynamically stable, her kidney function has worsened with increased BUN to 51 and creatinine to 3.45, nephrology are following, chest x-ray reveals worsening congestive heart failure, prognosis is poor, will follow closely, pulmonary critical care, cardiology and nephrology are following. On 11/03/2019 patient was seen and examined in the ICU, she is intubated maintained on mechanical ventilation sedation has been off however patient is not having any response. per her nurse critical care has discussed the case with her family and decision was made to proceed with terminal extubation later on today after the family and the hot patcher are here. Objective - Vital Signs Vital signs: Vital Signs Temp 97.8 F 11/03/19 08:00 Pulse 81 11/03/19 10:57 Resp 20 11/03/19 10:00 BP 145/72 11/03/19 01:00 Pulse Ox 98 11/03/19 10:00 Intake & Output 11/02/19 11/03/19 11/03/19 18:59 06:59 18:59 Intake Total 605.118 790 135 Output Total 420 495 95 Balance 185.118 295 40 Weight 50.7 kg Intake: IV 260 190 30 Sodium Chloride 0.9% 500 260 190 30 ml 500 ml @ 20 mls/hr IV .Q24H [facility] Rx#:[id number] Intake, IV Titration 140.118 100 Amount Piperacillin-Tazobactam 3 100 100 .375 gm In Sodium Chloride 0.9% 100 ml @ 25 mls/hr IVPB Q12H [facility] Rx# :[id number] Propofol 1,000 mg In 40.118 Empty Bag 1 bag @ Titrate IV .Q0M [facility] Rx#: [id number] Tube Feeding 205 420 105 Other 80 Output: Urine 420 495 95 Other: Voiding Method Indwelling Catheter Indwelling Catheter Indwelling Catheter # Bowel Movements 1 ABP, PAP, CO, CI - Last Documented Arterial Blood Pressure 155/56 - Exam In general patient is intubated maintained on mechanical ventilation HEENT without any acute abnormality Neck is supple no JVD no goiter Chest exam reveals scattered rhonchi bilaterally no wheezing Cardiac exam reveals regular heart sounds no murmurs Abdomen is soft nontender no organomegaly Extremity exam reveals no edema - Labs CBC & Chem 7: 11/03/19 04:45 11/03/19 04:45 Labs: Abnormal Lab Results - Last 24 Hours (Table) 11/02/19 11/02/19 11/02/19 Range/Units 11:42 18:07 23:57 WBC (3.8-10.6) k/uL RBC (3.80-5.40) m/uL Hgb (11.4-16.0) gm/dL Hct (34.0-46.0) % Neutrophils # (1.3-7.7) k/uL ABG pCO2 (35-45) mmHg ABG HCO3 (21-25) mmol/L Carbon Dioxide (22-30) mmol/L BUN (7-17) mg/dL Creatinine (0.52-1.04) mg/dL Glucose (74-99) mg/dL POC Glucose (mg/dL) 163 H 212 H 211 H (75-99) mg/dL Calcium (8.4-10.2) mg/dL Phosphorus (2.5-4.5) mg/dL AST (14-36) U/L ALT (4-34) U/L Total Protein (6.3-8.2) g/dL Albumin (3.5-5.0) g/dL 11/03/19 11/03/19 11/03/19 Range/Units 04:45 04:45 05:02 WBC 15.1 H (3.8-10.6) k/uL RBC 3.24 L (3.80-5.40) m/uL Hgb 9.5 L (11.4-16.0) gm/dL Hct 28.8 L (34.0-46.0) % Neutrophils # 12.7 H (1.3-7.7) k/uL ABG pCO2 29 L (35-45) mmHg ABG HCO3 20 L (21-25) mmol/L Carbon Dioxide 21 L (22-30) mmol/L BUN 65 H (7-17) mg/dL Creatinine 3.97 H (0.52-1.04) mg/dL Glucose 130 H (74-99) mg/dL POC Glucose (mg/dL) (75-99) mg/dL Calcium 7.9 L (8.4-10.2) mg/dL Phosphorus 5.8 H (2.5-4.5) mg/dL AST 132 H (14-36) U/L ALT 40 H (4-34) U/L Total Protein 5.7 L (6.3-8.2) g/dL Albumin 2.7 L (3.5-5.0) g/dL 11/03/19 Range/Units 06:01 WBC (3.8-10.6) k/uL RBC (3.80-5.40) m/uL Hgb (11.4-16.0) gm/dL Hct (34.0-46.0) % Neutrophils # (1.3-7.7) k/uL ABG pCO2 (35-45) mmHg ABG HCO3 (21-25) mmol/L Carbon Dioxide (22-30) mmol/L BUN (7-17) mg/dL Creatinine (0.52-1.04) mg/dL Glucose (74-99) mg/dL POC Glucose (mg/dL) 127 H (75-99) mg/dL Calcium (8.4-10.2) mg/dL Phosphorus (2.5-4.5) mg/dL AST (14-36) U/L ALT (4-34) U/L Total Protein (6.3-8.2) g/dL Albumin (3.5-5.0) g/dL Microbiology - Last 24 Hours (Table) 10/30/19 23:56 Blood Culture - Preliminary Blood No Growth after 72 hours 10/30/19 23:34 Gram Stain - Final Sputum Sputum Culture - Final Assessment and Plan Plan: 1. Cardiopulmonary arrest 2. Evidence of cardiomyopathy with decreased ejection fraction 20-25 percent, patient has a history of ICD placement 3. prolonged cardiac resuscitation with high possibility of aspiration patient was started on IV Zosyn 4. acute renal failure with elevated BUN and creatinine, with underlying chronic kidney disease stage III nephrology consultation was requested 5. metabolic acidosis 6. hypotension patient was started on vasopressors in intensive care unit 7. Underlying history of diabetes mellitus at this time patient is admitted to intensive care unit she is intubated sedated maintained on mechanical ventilation She is maintained on IV antibiotic pulmonary cardiology and nephrology consultations are following Prognosis is poor due to severity of illness was prolonged cardiopulmonary arrest and severe underlying cardiac disease Will follow closely
[2019-11-03] MEDS: SODIUM CHLORIDE 0.9% 500 ML 500 ML IV SCH (11:27)
--- NOTE | 2019-11-03 12:47 | PN ---
PROGRESS NOTE PULMONARY/CRITICAL CARE PROGRESS NOTE: DATE OF SERVICE: 11/03/2019 Critical care 30 minutes. This is a 74-year-old black female who had an [id number] cardiac arrest with a prolonged resuscitation time. She spent about 15 minutes and then again 10 minutes with resuscitation, both outside hospital and within the hospital. Anyway, we were concerned about anoxic brain injury. In addition, when the patient presented to the emergency department Dr. Ponce thought she may have had an esophageal intubation. She was extubated and reintubated by him in the ER. Her initial blood gases showed a pH of only 6.93. I have had conversations with the daughter, Nichole. She understands the gravity of the situation. Today, I spoke with her again. Ms. Robbins has been off of sedation since yesterday. She is not showing any response other than to deep pain. She does have a bit of a gag reflex. The patient does not have a corneal reflex. Doll's eyes are absent. The patient is a DNR. We did talk to Nichole about withdrawing life support. She is in agreement. Mom would not want to be on the life support machine any longer. Currently, she is on the volume assist-control mode rate of 20, tidal volume 350, FiO2 25%, PEEP of 5. Blood gases show pO2 of 87, pCO2 of 29, pH 7.43. She is getting saline IV at 10 mL an hour. She is getting Vital high-protein at goal which is 35 hour. Propofol has been off since yesterday. Her neurologic exam has not changed. Again, the daughter is in agreement to making mom a comfort measures only patient. PHYSICAL EXAMINATION: VITAL SIGNS: Current vital signs are reviewed. Temperature is 97.8, heart rate 84, respiratory rate 25, blood pressure 165/62, saturations are 97% on 25% FiO2 and 5 of PEEP. Appears in no acute distress. There is an orally placed endotracheal tube and NG tube. NECK: Supple. Full range of motion. CARDIOVASCULAR: Examination reveals regular rhythm rate. Heart rate 84. S1, S2 normal. LUNGS: Reveal a few scattered rhonchi. No wheezes or crackles. ABDOMEN: Soft. Bowel sounds are heard. EXTREMITIES are intact. No cyanosis, clubbing, or edema. SKIN: Without rash. NEUROLOGIC: Examination reveals an absent gag reflex. She does trigger the ventilator from time to time. She does not respond to anything but deep pain. No verbal response. Corneal reflexes are absent. Absent doll's eyes reflex. LABS: Reviewed. White count 15.1, hemoglobin 9.5, hematocrit 28.8, platelet count 203,000. Blood gases have been noted. Sodium 139, potassium 4.2, chloride 106, CO2 is 21, anion gap is 12. BUN and creatinine were 65 and 3.97. The rest of the labs are reviewed. A chest x-ray from November 02 shows bilateral pleural effusions. EEG done on October 31 shows generalized diffuse cerebral dysfunction. Microbiology is negative. Laboratory data is reviewed. Orders are reviewed. The patient is on aspirin, Coreg, chlorhexidine, Lasix, heparin, insulin, DuoNeb, magnesium, Narcan, Protonix, Zosyn, propofol and saline IV. A lot of these medications will be discontinued. ASSESSMENT: 1. Fbr-fk-ihmzymzh cardiopulmonary arrest with prolonged resuscitation phase lasting about 25 minutes or so, with eventual return of spontaneous circulation. 2. Status post esophageal intubation, requiring extubation and re-intubation in the emergency room by Dr. Shekhar Ponce. 3. Probable severe anoxic brain injury/vegetative state. 4. Cardiopulmonary arrest of unclear etiology, status post cardiopulmonary resuscitation with eventual return of spontaneous circulation. 5. History of depression. 6. Diabetes mellitus. 7. Hyperlipidemia. 8. Hypertension. 9. Mitral valve prolapse. 10.History of acute on chronic kidney disease. 11.Hypothyroidism. 12.Dementia. 13.Gout. 14.Non-anion gap metabolic acidosis. 15.Hypocalcemia. PLAN: Overall, the patient is doing very poorly. We will continue to follow. I did talk to Nichole today. We are going to withdraw life support later today. Nichole is in agreement. She states her mom would be in agreement. The patient has had no significant recovery of neurologic function since yesterday. Again, probable severe anoxic brain injury/vegetative state. Additional recommendations and suggestions are forthcoming. MMODL / IJN: [id number] /
[2019-11-03] MEDS ORDERED: LORazepam 2 MG/ML INJ IV PRN (13:28)
[2019-11-03] MEDS: MORPHINE SULFATE 2 MG/ML SYRINGE IV PRN ×3 (13:46→14:42)
[2019-11-03] MEDS ORDERED: SCOPOLAMINE 1.5MG/72HR PATCH TRANSDERM SCH (14:00)
[2019-11-03] MEDS ORDERED: MORPHINE SULFATE 2 MG/ML SYRINGE IVP ONE (14:40)
[2019-11-03] MEDS: MORPHINE SULFATE (100 MG/2 ML) 100 MG in SODIUM CHLORIDE 0.9% 100 ML IV SCH (15:06)
--- NOTE | 2019-11-03 15:23 | PN ---
PROGRESS NOTE The patient is seen for followup for acute kidney injury on top of chronic kidney disease. She remains on the vent. There are plans for switching to comfort care measures today. FiO2 is at 25%. Patient remains unresponsive off of all sedation. Urine output is maintained at about 30-20 mL/hours. PHYSICAL EXAMINATION: On examination, patient is currently on the vent. She is unresponsive. Blood pressure this morning was 161/58, heart rate 80 per minute, patient is afebrile. Exam is unchanged from yesterday. Labs show sodium 139, potassium 4.2, chloride 106, BUN 65, serum creatinine 3.97, hemoglobin 9.5 g/dL. ASSESSMENT: 1. Acute kidney injury, acute tubular necrosis, nonoliguric, worsened over the last 2- 3 days. 2. Anoxic encephalopathy. 3. Status post cardiopulmonary arrest. 4. Acute hypoxic respiratory failure. 5. Chronic kidney disease stage 3 secondary to nephrosclerosis. 6. Congestive heart failure and volume overload. PLAN: Agree with comfort care measures. The patient is not a candidate for dialysis. MMODL / IJN: [id number] /
[2019-11-03 18:25] VITALS: PULSE 83; RESP 20
[2019-11-04] MEDS: MORPHINE SULFATE (100 MG/2 ML) 100 MG in SODIUM CHLORIDE 0.9% 100 ML IV SCH ×2 (04:25→11:00)
--- NOTE | 2019-11-04 07:44 | P.PN ---
Subjective Progress Note Date: 11/04/19 A 74-year-old male patient who came in for an out of the hospital cardiac arrest with a prolonged downtime. The patient did spend around 15 minutes and then another 10 minutes with resuscitation outside the hospital and within the hospital. The patient is currently in the intensive care unit. The patient had a total of at least 25 minutes of downtime with subsequent return of spontaneous circulation. There is a high concern that the patient has an underlying severe case of anoxic encephalopathy. The patient has an extensive medical history including severe nonischemic cardiomyopathy and the patient has biventricular AICD in place. Comorbidities including dementia, hypothyroidism, chronic kidney disease, hypertension, hyperlipidemia, diabetes mellitus and history of depression. The patient arrived with cardiac arrest with V. fib as well as asystole during resuscitation. Please refer to records for further details regarding the early resuscitation. The patient had an earlier cardiac c atheterization in 2014 that showed normal coronaries. An echocardiogram from 2014 had revealed cardiomyopathy with impaired ejection fraction of 20-25%. For that reason she was given a biventricular AICD. Her repeat echocardiogram during this current hospital admission showed very impaired LV function with an EF of around 20-25% and grade 3 diastolic dysfunction. The LV showed severe global hypokinesis and RV was within normal limits. The patient will be seen by cardiology and neurology in addition to the intensive care services. Based on neurologic examination, there are signs of significant hypoxic encephalopathy. the patient subsequently was found to have a very poor prognosis. Based on her ongoing medical problems and comorbidities, it was decided to proceed with comfort care measures. Dr. Mccauley discussed this with the family and the patientwas extubated and started on comfort care measures including a morphine drip at 5 mg an hour. She is currently on 2 L about 2 by nasal cannula.was given a scolamine patch this morning, the patient is still on morphine drip at 15 mg an hour. She is calm and comfortable. He is unresponsive. She is not struggling at home with her breathing. No seizure activity has been noted. No orotracheal secretions. The plan is comfort care measures. Objective - Vital Signs Vital signs: Vital Signs Temp 97.8 F 11/03/19 08:00 Pulse 83 11/03/19 18:00 Resp 20 11/03/19 18:00 BP 145/72 11/03/19 01:00 Pulse Ox 98 11/03/19 18:00 Intake & Output 11/03/19 11/04/19 11/04/19 18:59 06:59 18:59 Intake Total 277.805 124.287 Output Total 205 Balance 72.805 124.287 Intake: IV 100 Sodium Chloride 0.9% 500 100 ml 500 ml @ 20 mls/hr IV .Q24H [facility] Rx#:[id number] Intake, IV Titration 2.805 124.287 Amount Morphine Sulfate (100 mg/ 2.805 124.287 2 ml) 100 mg In Sodium Chloride 0.9% 100 ml @ 1 MG/HR 1.02 mls/hr IV . Q24H [facility] Rx#:[id number] Tube Feeding 175 Output: Urine 205 Other: Voiding Method Indwelling Catheter ABP, PAP, CO, CI - Last Documented Arterial Blood Pressure 138/49 - Exam The patient unresponsive on a. Vital signs as documented. Head exam is unremarkable. No scleral icterus or corneal arcus noted. Neck is without jugular venous distension, thyromegaly, or carotid bruits. Carotid upstrokes are brisk bilaterally. Lungs are clear to auscultation and percussion. Cardiac exam reveals the PMI to be normally sized and situated. Rhythm is regular. First and second heart sounds normal. No murmurs, rubs or gallops. Abdominal exam reveals normal bowel sounds, no masses, no organomegaly and no aortic enlargement. Extremities are nonedematous and both femoral and pedal pulses are normal. - Labs CBC & Chem 7: 11/03/19 04:45 11/03/19 04:45 Labs: Microbiology - Last 24 Hours (Table) 10/30/19 23:56 Blood Culture - Preliminary Blood No Growth after 96 hours Assessment and Plan Plan: 1. Cardiopulmonary arrest, prolonged downtime, anoxic encephalopathy, currently undergoing comfort care measures. Patient is completely unresponsive. She does have corneal reflexes. Gag is absent. Reflexes are sluggish on the one point. 2.CHF with decreased ejection fraction 20-25 percent, patient has a history of ICD placement 3. prolonged cardiac resuscitation with high possibility of aspiration patient was started on IV Zosyn 4. acute renal failure with elevated BUN and creatinine, with underlying chronic kidney disease stage III nephrology consultation was requested 5 diabetes mellitus Plan This morning comfort care measures is being offered to this patient. She is still on a morphine drip at 15 mg an hour. She is calm and comfortable. Family is aware and appropriate visitation with her daughter has been done yesterday. The patient can be transferred to her medical medical surgical floor. We will sign off the case. Very poor prognosis..
[2019-11-04 10:15] VITALS: BMI 21.8
[2019-11-04] MEDS: SODIUM CHLORIDE 0.9% 500 ML 500 ML IV SCH (11:02)
--- NOTE | 2019-11-06 13:58 | CDI ---
Documentation Clarification Form Date: 11/06/2019 01:44:15 PM From: Rossana Sen CCS, CCDS Admit Date: 10/31/2019 02:58:00 AM Patient Name: Renita Robbins Visit Number: [id number] Discharge Date: 11/04/2019 01:32:00 PM ATTENTION: The Clinical Documentation Specialists (CDI) and [facility] Coding Staff appreciate your assistance in clarifying documentation. Please respond to the clarification below the line at the bottom and electronically sign. The CDI & [facility] Coding staff will review the response and follow-up if needed. Please note: Queries are made part of the Legal Health Record. If you have any questions, please contact the author of this message via ITS. Dr. Ted Murillo: COVID-19 test done on 10/30/2019, reported negative on 10/30/2019. Patient history/risk factors: Chronic systolic heart failure, Hypertension, Cardiomyopathy, Anemia, Hypothyroidism, DM II w/CKD stage III, Hyperlipidemia, Mitral Valve Prolapse, Dementia, Smoker. Clinical Indicators: 74 yo female, presented to the ED on 10/29 with CPR in progress for cardiac arrest, unresponsive. Intubated & admitted to ICU with Acute Hypoxic Respiratory Failure, Acute on Chronic Systolic CHF, Acute Kidney Failure w/ATN, Anoxic Brain Injury, Ventricular fibrillation & Acidosis. CXR 10/29: Moderately severe pulmonary edema. Labs: COVID 19 10/29 negative. WBC 12.9^, Hgb 8.9*, CO2 9, BUN 26^, Cr 2.16^, Lactic acid 14.7^^. 10/29 ABGs: pH 6.93, pO2 188^, HCO3 9, Total CO2 10*, O2 Sat 97.3^ 10/29 Vital Signs: T 97.9^ (10/30), P 133^, R 20, BP 100/71, 79/49*, PO: 100^ vent. Patient was made comfort care on 11/03 & . Treatment: IV Propofol, IV Na Bicarb, IV fluid 1,000 mls @ 80/hr, IV Rocephin, INH Albuterol, IV Mag Sulfate, IV fluid bolus 1,000 mls @ 999/hr, IV Lasix, IV Zosyn, IV Calcium Gluconate. In order to capture the severity of condition, please clarify if the above treatment/clinical indicators signify: COVID-19 False negative but treated COVID-19 ruled out Other, please specify Unable to determine (Last Form Revision: August 2019) Covid 19 ruled out MTDD
--- NOTE | 2019-11-06 14:05 | CDI ---
Documentation Clarification Form Date: 11/06/2019 01:58:54 PM From: Rossana Sen CCS, CCDS Admit Date: 10/31/2019 02:58:00 AM Patient Name: Renita Robbins Visit Number: [id number] Discharge Date: 11/04/2019 01:32:00 PM ATTENTION: The Clinical Documentation Specialists (CDI) and [facility] Coding Staff appreciate your assistance in clarifying documentation. Please respond to the clarification below the line at the bottom and electronically sign. The CDI & [facility] Coding staff will review the response and follow-up if needed. Please note: Queries are made part of the Legal Health Record. If you have any questions, please contact the author of this message via ITS. Dr. Ted Murillo: Patient presented to the ED on 10/29, in cardiac arrest, unresponsive, intubated & started on vasopressors, admitted to ICU. Patient history/risk factors: Chronic systolic heart failure, Hypertension, Cardiomyopathy, Anemia, Hypothyroidism, DM II w/CKD stage III, Hyperlipidemia, Mitral Valve Prolapse, Dementia, Smoker. Clinical Indicators: 74 yo female, presented to the ED on 10/29 with CPR in progress for cardiac arrest, unresponsive. Intubated & admitted to ICU with Acute Hypoxic Respiratory Failure, Acute on Chronic Systolic CHF, Acute Kidney Failure w/ATN, Anoxic Brain Injury, Ventricular fibrillation & Acidosis. CXR 10/29: Moderately severe pulmonary edema. Labs: COVID 19 10/29 negative. WBC 12.9^, Hgb 8.9*, CO2 9, BUN 26^, Cr 2.16^, Lactic acid 14.7^^. 10/29 ABGs: pH 6.93, pO2 188^, HCO3 9, Total CO2 10*, O2 Sat 97.3^ 10/29 Vital Signs: T 97.9^ (10/30), P 133^, R 20, BP 100/71, 79/49*, PO: 100^ vent. Patient was made comfort care on 11/03 & . Treatment: IV Propofol, IV Na Bicarb, IV fluid 1,000 mls @ 80/hr, IV Rocephin, INH Albuterol, IV Mag Sulfate, IV fluid bolus 1,000 mls @ 999/hr x2, IV Lasix, IV Zosyn, IV Calcium Gluconate. In your professional opinion, can you please specify the type of shock if known? Shock ruled out Hypovolemic Shock Cardiogenic Shock o Cause Other, please specify Unable to determine (Last Revision: March 2017) MTDD
--- NOTE | 2019-11-07 09:31 | CDI ---
Documentation Clarification Form Date: 11/06/2019 01:58:00 PM From: Rossana Sen CCS, CCDS Admit Date: 10/31/2019 02:58:00 AM Patient Name: Renita Robbins Visit Number: [id number] Discharge Date: 11/04/2019 01:32:00 PM ATTENTION: The Clinical Documentation Specialists (CDI) and [facility] Coding Staff appreciate your assistance in clarifying documentation. Please respond to the clarification below the line at the bottom and electronically sign. The CDI & [facility] Coding staff will review the response and follow-up if needed. Please note: Queries are made part of the Legal Health Record. If you have any questions, please contact the author of this message via ITS. Dr. Ted Murillo: Patient presented to the ED on 10/29, in cardiac arrest, unresponsive, intubated & started on vasopressors, admitted to ICU. Patient history/risk factors: Chronic systolic heart failure, Hypertension, Cardiomyopathy, Anemia, Hypothyroidism, DM II w/CKD stage III, Hyperlipidemia, Mitral Valve Prolapse, Dementia, Smoker. Clinical Indicators: 74 yo female, presented to the ED on 10/29 with CPR in progress for cardiac arrest, unresponsive. Intubated & admitted to ICU with Acute Hypoxic Respiratory Failure, Acute on Chronic Systolic CHF, Acute Kidney Failure w/ATN, Anoxic Brain Injury, Ventricular fibrillation & Acidosis. CXR 10/29: Moderately severe pulmonary edema. Labs: COVID 19 10/29 negative. WBC 12.9^, Hgb 8.9*, CO2 9, BUN 26^, Cr 2.16^, Lactic acid 14.7^^. 10/29 ABGs: pH 6.93, pO2 188^, HCO3 9, Total CO2 10*, O2 Sat 97.3^ 10/29 Vital Signs: T 97.9^ (10/30), P 133^, R 20, BP 100/71, 79/49*, PO: 100^ vent. Patient was made comfort care on 11/03 & . Treatment: IV Propofol, IV Na Bicarb, IV fluid 1,000 mls @ 80/hr, IV Rocephin, INH Albuterol, IV Mag Sulfate, IV fluid bolus 1,000 mls @ 999/hr x2, IV Lasix, IV Zosyn, IV Calcium Gluconate. In your professional opinion, can you please specify the type of shock if known? Shock ruled out Hypovolemic Shock Cardiogenic Shock o Cause Other, please specify Unable to determine (Last Revision: March 2017) Cardiogenic shock post cardiac arrest MTDD
== END 2019-11-04 13:32 | disposition hospice, inpatient (51) | DRG 208 ==
LOC: EC 22:37 → 2SICU 10-31 02:58
PROVIDERS: ADMIT Internal Medicine; ATTEND Internal Medicine
PROC: 5A1945Z Respiratory Ventilation, 24-96 Consecutive Hours (ICD-10-PCS; principal; 2019-10-30)
PROC: 3E033XZ Introduction of Vasopressor into Peripheral Vein, Percutaneous Approach (ICD-10-PCS; principal; 2019-10-30)
PROC: 0BH17EZ Insertion of Endotracheal Airway into Trachea, Via Natural or Artificial Opening (ICD-10-PCS; principal; 2019-10-30)
PROC: 5A12012 Performance of Cardiac Output, Single, Manual (ICD-10-PCS; principal; 2019-10-30)
PROC: 4A133J1 Monitoring of Arterial Pulse, Peripheral, Percutaneous Approach (ICD-10-PCS; 2019-10-31)
PROC: 4A133B1 Monitoring of Arterial Pressure, Peripheral, Percutaneous Approach (ICD-10-PCS; 2019-10-31)
PROC: 03HY32Z Insertion of Monitoring Device into Upper Artery, Percutaneous Approach (ICD-10-PCS; 2019-10-31)
DX: J96.01 Acute respiratory failure with hypoxia (principal); I49.01 Ventricular fibrillation; I50.23 Acute on chronic systolic (congestive) heart failure; N17.0 Acute kidney failure with tubular necrosis; R40.2312 Coma scale, best motor response, none, at arrival to emergency department; R40.2112 Coma scale, eyes open, never, at arrival to emergency department; R40.2212 Coma scale, best verbal response, none, at arrival to emergency department; R57.0 Cardiogenic shock; E87.4 Mixed disorder of acid-base balance; G93.1 Anoxic brain damage, not elsewhere classified; I13.0 Hypertensive heart and chronic kidney disease with heart failure and stage 1 through stage 4 chronic kidney disease, or unspecified chronic kidney disease; I42.8 Other cardiomyopathies; D64.9 Anemia, unspecified; E03.9 Hypothyroidism, unspecified; E11.22 Type 2 diabetes mellitus with diabetic chronic kidney disease; E78.5 Hyperlipidemia, unspecified; E83.39 Other disorders of phosphorus metabolism; E83.51 Hypocalcemia; Z20.828 Contact with and (suspected) exposure to other viral communicable diseases; F03.90 Unspecified dementia, unspecified severity, without behavioral disturbance, psychotic disturbance, mood disturbance, and anxiety; F17.210 Nicotine dependence, cigarettes, uncomplicated; N18.3 Chronic kidney disease, stage 3 (moderate); Z66 Do not resuscitate; Z51.5 Encounter for palliative care; F32.9 Major depressive disorder, single episode, unspecified; I34.1 Nonrheumatic mitral (valve) prolapse; I34.0 Nonrheumatic mitral (valve) insufficiency; I44.7 Left bundle-branch block, unspecified; M10.9 Gout, unspecified; M89.8X9 Other specified disorders of bone, unspecified site; M89.9 Disorder of bone, unspecified; Z79.4 Long term (current) use of insulin; Z79.82 Long term (current) use of aspirin; Z79.890 Hormone replacement therapy; Z79.899 Other long term (current) drug therapy; Z80.9 Family history of malignant neoplasm, unspecified; Z95.810 Presence of automatic (implantable) cardiac defibrillator; Z90.49 Acquired absence of other specified parts of digestive tract
CPT/HCPCS: 31500; 36415; 36556; 36600; 70450; 71045; 80048; 80053; 82330; 82728; 82805; 82947; 83036; 83605; 83615; 83735; 83880; 84100; 84132; 84145; 84484; 85025; 85610; 85730; 86140; 87040; 87070; 87205; 92950; 93005; 93306; 94002; 94003; 94640; 95816; 96365; 96366; 99291

== ENCOUNTER 2019-11-04 13:03 | Inpatient (IN) | payer MEDICAID ==
[2019-11-04] MEDS ORDERED: SCOPOLAMINE 1.5MG/72HR PATCH TRANSDERM PRN (13:04)
[2019-11-04] MEDS ORDERED: LORazepam 2 MG/ML INJ IV PRN (13:04)
[2019-11-04] MEDS ORDERED: ACETAMINOPHEN SUPPOSITORY 650 MG SUPP RECTAL PRN (13:04)
--- NOTE | 2019-11-04 17:16 | P.HPIM ---
History of Present Illness H&P Date: 11/04/19 Renita Robbins is a 74-year-old female who was brought in to [facility] emergency room with a chief complaint of worsening shortness of breath, while in the ambulance patient had a cardiopulmonary arrest resuscitation was started and was continued in the emergency room patient was intubated and started on mechanical ventilation and was admitted to intensive care unit patient was seen by cardiology and pulmonary she was hemodynamically Stabilized sedation was discontinued, however patient was totally unresponsive she was seen by neurology and underwent EEG. Case was discussed between critical care and her family and decision was made to proceed with changing her CODE STATUS stool cough for care only. Hospice consult was requested. Past Medical History Past Medical History: Diabetes Mellitus, Mitral Valve Prolapse (MVP), Renal Disease, Thyroid Disorder Additional Past Medical History / Comment(s): STATES SOME MEMORY LOSS, HX GOUT History of Any Multi-Drug Resistant Organisms: None Reported Past Surgical History: Cholecystectomy, Heart Catheterization Additional Past Surgical History / Comment(s): DEVEN CATARACT SX, DEVEN EYELIDS SX, Past Anesthesia/Blood Transfusion Reactions: No Reported Reaction Type of Cardiac Device: AICD Device Placement Date:: 2012 Past Psychological History: Depression Smoking Status: Former smoker Past Alcohol Use History: Occasional Past Drug Use History: None Reported - Past Family History Father Family Medical History: Unable to Obtain Additional Family Medical History / Comment(s): PT ESTRANGED FROM FATHER. Mother Family Medical History: Cancer Additional Family Medical History / Comment(s): MOTHER OF CANCER AT AGE 54- UNSURE WHAT TYPE OF CA BUT THINKS IT WAS IN HER ABDOMEN.. Sister(s) Family Medical History: Cancer Additional Family Medical History / Comment(s): Breast Medications and Allergies Home Medications Medication Instructions Recorded Confirmed Type Calcitriol 0.25 mcg PO FR 03/12/14 11/04/19 History HYDROcodone/APAP 5-325MG [[place] 1 tab PO BID PRN 03/12/14 11/04/19 History 5-325] Levothyroxine Sodium [Synthroid] 75 mcg PO DAILY 03/12/14 11/04/19 History Sodium Bicarbonate Tab 650 mg PO BID 03/12/14 11/04/19 History buPROPion XL [Wellbutrin XL] 300 mg PO DAILY 03/12/14 11/04/19 History traMADol HCL [Ultram] 50 mg PO Q6HR PRN 10/08/14 06/01/20 History Aspirin 81 mg PO DAILY #90 chew 03/18/14 11/04/19 Rx Ergocalciferol [Vitamin D2 50,000 unit PO FR 05/13/15 11/04/19 History (DRISDOL)] Escitalopram [Lexapro] 10 mg PO DAILY 05/13/15 11/04/19 History Furosemide [Lasix] 20 mg PO DAILY 05/13/15 11/04/19 History traZODone HCL [Desyrel] 100 mg PO HS 05/13/15 11/04/19 History Allopurinol [Zyloprim] 100 mg PO DAILY 07/20/15 11/04/19 History Carvedilol [Coreg] 6.25 mg PO BID 07/20/15 11/04/19 History Glucerna Shake 1 can PO TID-W/MEALS 07/21/15 11/04/19 History Sevelamer [Renvela] 800 mg PO AC-BID 10/31/19 11/04/19 History glipiZIDE [Glucotrol] 5 mg PO TID 10/31/19 11/04/19 History Allergies Allergy/AdvReac Type Severity Reaction Status Date / Time No Known Allergies Allergy Verified 11/04/19 09:47 Physical Exam Vitals: Intake and Output 11/04/19 11/04/19 11/04/19 06:59 14:59 22:59 Output Total 50 Balance -50 Output: Urine 50 Other: Voiding Method Self-Catheterization Weight 50.7 kg Patient is an responsive in no apparent distress no evidence of pain discomfort agitation or seizure activity Assessment and Plan Plan: Terminal care post cardio pulmonary arrest, hospice consult was requested I spoke with [facility] hospice nurse over the phone Patient is maintained on morphine drip No evidence of pain discomfort agitation or seizure activity Will continue with current management and adjust medications as needed for comfort
[2019-11-04] MEDS: MORPHINE SULFATE (100 MG/2 ML) 100 MG in SODIUM CHLORIDE 0.9% 100 ML IV SCH (17:57)
[2019-11-05] MEDS: MORPHINE SULFATE (100 MG/2 ML) 100 MG in SODIUM CHLORIDE 0.9% 100 ML IV SCH ×2 (03:16→11:49)
--- NOTE | 2019-11-05 18:05 | P.PN ---
Progress Note - Text Progress Note Date: 11/05/19 Renita Robbins is a 74-year-old female who was brought in to [facility] emergency room with a chief complaint of worsening shortness of breath, while in the ambulance patient had a cardiopulmonary arrest resuscitation was started and was continued in the emergency room patient was intubated and started on mechanical ventilation and was admitted to intensive care unit patient was seen by cardiology and pulmonary she was hemodynamically Stabilized sedation was discontinued, however patient was totally unresponsive she was seen by neurology and underwent EEG. Case was discussed between critical care and her family and decision was made to proceed with changing her CODE STATUS stool cough for care only. Hospice consult was requested. On 11/05/2019 patient was seen and examined on the medical floor in the presence of the hospice nurse, patient is an responsive there is no evidence or pain or discomfort no agitation no signs of any seizure activity medication reviewed continue with current course, prognosis is terminal.
== END 2019-11-05 16:04 | disposition expired | DRG 951 ==
LOC: 2SICU 13:37 → 5NMEDONC 20:50
PROVIDERS: ADMIT Internal Medicine; ATTEND Internal Medicine
DX: Z51.5 Encounter for palliative care (principal); E11.9 Type 2 diabetes mellitus without complications; F32.9 Major depressive disorder, single episode, unspecified; I34.1 Nonrheumatic mitral (valve) prolapse; E07.9 Disorder of thyroid, unspecified; M10.9 Gout, unspecified; R41.3 Other amnesia; Z86.74 Personal history of sudden cardiac arrest; Z66 Do not resuscitate; Z79.82 Long term (current) use of aspirin; Z79.84 Long term (current) use of oral hypoglycemic drugs; Z79.890 Hormone replacement therapy; Z79.899 Other long term (current) drug therapy; Z87.891 Personal history of nicotine dependence; Z90.49 Acquired absence of other specified parts of digestive tract; Z98.42 Cataract extraction status, left eye; Z98.41 Cataract extraction status, right eye; Z95.810 Presence of automatic (implantable) cardiac defibrillator; Z80.9 Family history of malignant neoplasm, unspecified; Z80.3 Family history of malignant neoplasm of breast